=== PATIENT | male | born 1930 | race Caucasian/White ===

== ENCOUNTER 2018-11-30 11:47 | Inpatient (IN) | payer MEDICARE, OTHER ==
[2018-11-30 12:32] LABS: ADD MAN DIFF? NO
[2018-11-30 12:38] LABS: ABNORMAL IP MESSAGE 1; EOSINOPHILS # 0.1 10^3/ul (0.0-0.5); EOSINOPHILS % 3.6 % (0.0-7.0); HEMATOCRIT 35.3 % (42.0-52.0); HEMOGLOBIN 11.8 g/dl (14.0-18.0); LYMPHOCYTES # 0.5 10^3/ul (0.8-2.9); LYMPHOCYTES % 17.3 % (15.0-51.0); MEAN CORPUSCULAR HEMOGLOBIN 31.5 pg (29.0-33.0); MEAN CORPUSCULAR HGB CONC 33.4 g/dl (32.0-37.0); MEAN CORPUSCULAR VOLUME 94.1 fl (82.0-101.0); MEAN PLATELET VOLUME 9.9 fl (7.4-10.4); MONOCYTE # 0.2 10^3/ul (0.3-0.9); MONOCYTES % 6.8 % (0.0-11.0); NEUTROPHIL # 2.2 10^3/ul (1.6-7.5); PLATELET COUNT 80 10^3/UL (140-415); POSITIVE DIFF @See below; RED BLOOD COUNT 3.75 10^6/ul (4.70-6.10); RED CELL DISTRIBUTION WIDTH 14.5 % (11.5-14.5)
[2018-11-30 12:38] LABS: WHITE BLOOD COUNT 3.1 10^3/ul (4.8-10.8)
[2018-11-30 12:53] LABS: INR 1.02; PROTIME 13.5 Sec (11.9-14.9); PT RATIO 1.1
[2018-11-30 12:54] LABS: PARTIAL THROMBOPLASTIN TIME 31.7 Sec (23.0-35.0)
[2018-11-30 13:03] LABS: ANION GAP 9 (5-13); BLOOD UREA NITROGEN 30 mg/dl (7-20); CALCIUM 9.6 mg/dl (8.4-10.2); CARBON DIOXIDE 24 mmol/L (21-31); CHLORIDE 109 mmol/L (97-110); CHOL/HDL RATIO 2.1 RATIO; CHOLESTEROL 126 mg/dl (100-200); CREATININE 1.25 mg/dl (0.61-1.24); GLUCOSE 202 mg/dl (70-220); HDL CHOLESTEROL 59 mg/dl (31-75); LDL CHOLESTEROL,CALCULATED 45 mg/dl; POTASSIUM 4.6 mmol/L (3.5-5.1); SODIUM 142 mmol/L (135-144); TRIGLYCERIDES 111 mg/dl (0-149)
[2018-11-30 13:14] LABS: TROPONIN-I < 0.012 ng/ml (0.000-0.120)
[2018-11-30 13:17] LABS: HEMOGLOBIN A1C 7.7 % (0-5.9)
[2018-11-30] MEDS ORDERED: ONDANSETRON 4 MG INJ IV (13:30)
[2018-11-30 19:55] LABS: ADD UMIC NO; UR ASCORBIC ACID NEGATIVE (NEGATIVE); UR BILIRUBIN (Dip) NEGATIVE (NEGATIVE); UR BLOOD (Dip) NEGATIVE (NEGATIVE); UR CLARITY CLEAR (CLEAR); UR COLOR YELLOW (YELLOW); UR GLUCOSE (Dip) NEGATIVE (NEGATIVE); UR KETONES (Dip) NEGATIVE (NEGATIVE); UR LEUKOCYTE ESTERASE (Dip) NEGATIVE Leu/ul (NEGATIVE); UR NITRITE (Dip) NEGATIVE (NEGATIVE); UR SPECIFIC GRAVITY (Dip) 1.009 (1.003-1.030); UR TOTAL PROTEIN (Dip) NEGATIVE (NEGATIVE); UR UROBILINOGEN (Dip) NEGATIVE (NEGATIVE)
[2018-11-30] MEDS: ACETAMINOPHEN 325 MG TAB PO (20:08)
[2018-11-30 20:17] LABS: AMPHETAMINE/METHAMPHETAMINE Negative (NEGATIVE); BARBITURATES Negative (NEGATIVE); BENZODIAZEPINES Negative (NEGATIVE); CANNABINOIDS Negative (NEGATIVE); COCAINE Negative (NEGATIVE); OPIATES Negative (NEGATIVE)
[2018-11-30] MEDS ORDERED: hydrALAzine 20 MG INJ IV (21:30)
[2018-11-30] MEDS ORDERED: INSULIN DETEMIR [LEVEMIR] 3ML CART SC (21:30)
[2018-11-30] MEDS: SOD CHLORIDE 0.9% 500 ML IV (22:31)
[2018-11-30] MEDS ORDERED: ACETAMINOPHEN 325 MG TAB PO (23:30)
[2018-11-30] MEDS: SOD CHLORIDE 0.9% 1,000 ML IV (23:43)
[2018-12-01] MEDS: ACCU-CHEK XX (02:00)
[2018-12-01] MEDS: LORAZEPAM 0.5 MG TAB PO ×2 (02:05→21:33)
[2018-12-01] MEDS: LEVOTHYROXINE 175 MCG TAB PO (06:11)
[2018-12-01] MEDS: PANTOPRAZOLE (EC) 40 MG TAB PO ×2 (06:12→18:23)
[2018-12-01] MEDS: INSULIN ASPART [NOVOLOG] 3 ML PEN SC ×4 (07:55→21:32)
[2018-12-01] MEDS: ASPIRIN 81 MG TAB PO (08:10)
[2018-12-01] MEDS: GABAPENTIN 100 MG CAP PO (08:10)
[2018-12-01] MEDS: BENAZEPRIL 10 MG TAB PO (08:11)
[2018-12-01] MEDS: INSULIN GLARGINE [LANTus] (100 UNITS/ML) SYG SC (08:16)
[2018-12-01 08:27] LABS: WHITE BLOOD COUNT 2.2 10^3/ul (4.8-10.8)
[2018-12-01 08:27] LABS: ABNORMAL IP MESSAGE 1; HEMATOCRIT 32.1 % (42.0-52.0); HEMOGLOBIN 10.8 g/dl (14.0-18.0); MEAN CORPUSCULAR HEMOGLOBIN 31.9 pg (29.0-33.0); MEAN CORPUSCULAR HGB CONC 33.6 g/dl (32.0-37.0); MEAN CORPUSCULAR VOLUME 94.7 fl (82.0-101.0); MEAN PLATELET VOLUME 10.2 fl (7.4-10.4); PLATELET COUNT 73 10^3/UL (140-415); POSITIVE DIFF @See below; RED BLOOD COUNT 3.39 10^6/ul (4.70-6.10); RED CELL DISTRIBUTION WIDTH 14.3 % (11.5-14.5)
[2018-12-01 08:29] LABS: ADD MAN DIFF? YES
[2018-12-01 08:50] LABS: AMMONIA 31 umol/l (9-30)
[2018-12-01 08:51] LABS: CALCIUM 9.1 mg/dl (8.4-10.2)
[2018-12-01 08:51] LABS: CREATINE KINASE 37 IU/L (23-200); MAGNESIUM 1.9 mg/dl (1.7-2.5)
[2018-12-01 08:57] LABS: B-TYPE NATRIURETIC PEPTIDE 295 PG/ML (0-450); CK-MB 0.73 ng/ml (0.0-2.4); TROPONIN-I < 0.012 ng/ml (0.000-0.120)
[2018-12-01 10:50] LABS: BURR CELLS 1+ (0-0); EOSINOPHILS % (M) 2 % (0-7); GIANT THROMBO% (M) 1 % (0-0); LYMPHOCYTES #M 0.3 10^3/ul (0.8-2.9); LYMPHOCYTES % (M) 18 % (15-51); MONOCYTE #M 0.1 10^3/ul (0.3-0.9); MONOCYTES % (M) 9 % (0-11); MYELOCYTES % (M) 1 % (0-0); PLATELET ESTIMATE DECREASED; POIKILOCYTOSIS 1+ (0-0); SEGMENTED NEUTROPHILS (M) % 70 % (39-77); SMUDGE%M 3 % (0-0)
[2018-12-01] MEDS: SOD CHLORIDE 0.9% 1,000 ML IV (17:30)
[2018-12-01] MEDS: DOCUSATE SODIUM 100 MG CAP PO (21:34)
[2018-12-01] MEDS: GABAPENTIN 300 MG CAP PO (21:35)
[2018-12-01] MEDS: MAGNESIUM HYDROXIDE 30ML CUP PO (21:36)
[2018-12-02] MEDS: ACCU-CHEK XX (02:33)
[2018-12-02] MEDS: SOD CHLORIDE 0.9% 1,000 ML IV (03:23)
[2018-12-02] MEDS: PANTOPRAZOLE (EC) 40 MG TAB PO ×2 (06:13→17:56)
[2018-12-02] MEDS: LEVOTHYROXINE 175 MCG TAB PO (06:13)
[2018-12-02] MEDS: ASPIRIN 81 MG TAB PO (08:54)
[2018-12-02] MEDS: GABAPENTIN 100 MG CAP PO (08:54)
[2018-12-02] MEDS: BENAZEPRIL 10 MG TAB PO (08:54)
[2018-12-02] MEDS: LEVETIRACETAM 250 MG TAB PO ×2 (08:55→20:36)
[2018-12-02] MEDS: INSULIN ASPART [NOVOLOG] 3 ML PEN SC ×4 (10:20→20:36)
[2018-12-02] MEDS: INSULIN GLARGINE [LANTus] (100 UNITS/ML) SYG SC (10:20)
[2018-12-02] MEDS: NA PHOSPHATE/BIPHOS 133 ML ENEMA PR (10:25)
[2018-12-02 10:59] LABS: ADD MAN DIFF? NO
[2018-12-02 11:03] LABS: ABNORMAL IP MESSAGE 1; BASOPHILS % 0.3 % (0.0-2.0); EOSINOPHILS # 0.1 10^3/ul (0.0-0.5); HEMATOCRIT 33.2 % (42.0-52.0); HEMOGLOBIN 11.4 g/dl (14.0-18.0); LYMPHOCYTES # 0.4 10^3/ul (0.8-2.9); LYMPHOCYTES % 13.1 % (15.0-51.0); MEAN CORPUSCULAR HEMOGLOBIN 31.9 pg (29.0-33.0); MEAN CORPUSCULAR HGB CONC 34.3 g/dl (32.0-37.0); MEAN PLATELET VOLUME 9.8 fl (7.4-10.4); MONOCYTE # 0.3 10^3/ul (0.3-0.9); MONOCYTES % 8.4 % (0.0-11.0); NEUTROPHIL # 2.2 10^3/ul (1.6-7.5); NEUTROPHILS % 73.9 % (39.0-77.0); PLATELET COUNT 74 10^3/UL (140-415); POSITIVE DIFF @See below; RED BLOOD COUNT 3.57 10^6/ul (4.70-6.10); RED CELL DISTRIBUTION WIDTH 14.3 % (11.5-14.5)
[2018-12-02 11:29] LABS: ANION GAP 8 (5-13); BLOOD UREA NITROGEN 26 mg/dl (7-20); CARBON DIOXIDE 22 mmol/L (21-31); CHLORIDE 108 mmol/L (97-110); CREATININE 1.19 mg/dl (0.61-1.24); GLUCOSE 200 mg/dl (70-220); POTASSIUM 4.6 mmol/L (3.5-5.1); SODIUM 138 mmol/L (135-144)
[2018-12-02] MEDS: RIFAXIMIN 550 MG TAB PO (12:31)
[2018-12-02 12:55] LABS: ANISOCYTOSIS 1+ (0-0); BURR CELLS 1+ (0-0); EOSINOPHILS % (M) 7 % (0-7); LYMPHOCYTES #M 0.2 10^3/ul (0.8-2.9); LYMPHOCYTES % (M) 9 % (15-51); MONOCYTE #M 0.1 10^3/ul (0.3-0.9); MONOCYTES % (M) 4 % (0-11); OVALOCYTES 1+ (0-0); PLATELET ESTIMATE SIG DECREASED; POIKILOCYTOSIS 1+ (0-0); POLYCHROMASIA 3+ (0-0); REACTIVE LYMPHOCYTES% (M) 3 % (0-0); SEGMENTED NEUTROPHILS (M) % 77 % (39-77); SMUDGE%M 1 % (0-0)
[2018-12-02] MEDS: metFORMIN (XR) 500 MG TAB PO (17:56)
[2018-12-02] MEDS ORDERED: DIPHENHYDRAMINE 25 MG CAP PO (19:00)
[2018-12-02] MEDS ORDERED: RISPERIDONE 0.25 MG TAB PO (19:00)
[2018-12-02] MEDS: GABAPENTIN 300 MG CAP PO (20:12)
[2018-12-03] MEDS: ACCU-CHEK XX (02:00)
[2018-12-03] MEDS: LEVOTHYROXINE 175 MCG TAB PO (06:05)
[2018-12-03] MEDS: PANTOPRAZOLE (EC) 40 MG TAB PO ×2 (06:05→18:13)
[2018-12-03 06:24] LABS: ADD MAN DIFF? NO
[2018-12-03 06:36] LABS: ABNORMAL IP MESSAGE 1; BASOPHILS % 0.7 % (0.0-2.0); EOSINOPHILS # 0.1 10^3/ul (0.0-0.5); EOSINOPHILS % 4.5 % (0.0-7.0); HEMATOCRIT 35.1 % (42.0-52.0); LYMPHOCYTES # 0.5 10^3/ul (0.8-2.9); LYMPHOCYTES % 17.5 % (15.0-51.0); MEAN CORPUSCULAR HGB CONC 34.2 g/dl (32.0-37.0); MEAN CORPUSCULAR VOLUME 93.6 fl (82.0-101.0); MEAN PLATELET VOLUME 10.3 fl (7.4-10.4); MONOCYTE # 0.3 10^3/ul (0.3-0.9); MONOCYTES % 9.1 % (0.0-11.0); NEUTROPHILS % 68.2 % (39.0-77.0); PLATELET COUNT 82 10^3/UL (140-415); POSITIVE DIFF @See below; RED BLOOD COUNT 3.75 10^6/ul (4.70-6.10); RED CELL DISTRIBUTION WIDTH 14.5 % (11.5-14.5)
[2018-12-03 06:36] LABS: WHITE BLOOD COUNT 2.9 10^3/ul (4.8-10.8)
[2018-12-03 06:58] LABS: AMMONIA 110 umol/l (9-30)
[2018-12-03 07:08] LABS: ANION GAP 6 (5-13); BLOOD UREA NITROGEN 23 mg/dl (7-20); CALCIUM 9.4 mg/dl (8.4-10.2); CARBON DIOXIDE 23 mmol/L (21-31); CHLORIDE 112 mmol/L (97-110); GLUCOSE 168 mg/dl (70-220); MAGNESIUM 2.2 mg/dl (1.7-2.5); PHOSPHORUS 3.4 mg/dl (2.5-4.9); POTASSIUM 4.5 mmol/L (3.5-5.1); SODIUM 141 mmol/L (135-144)
[2018-12-03] MEDS: metFORMIN (XR) 500 MG TAB PO ×2 (07:55→17:19)
[2018-12-03] MEDS: SOD CHLORIDE 0.9% 1,000 ML IV (08:03)
[2018-12-03] MEDS: DOCUSATE SODIUM 100 MG CAP PO (08:04)
[2018-12-03] MEDS: GABAPENTIN 100 MG CAP PO (08:04)
[2018-12-03] MEDS: RIFAXIMIN 550 MG TAB PO (08:04)
[2018-12-03] MEDS: ASPIRIN 81 MG TAB PO (08:05)
[2018-12-03] MEDS: LEVETIRACETAM 250 MG TAB PO ×2 (08:10→21:00)
[2018-12-03] MEDS: BENAZEPRIL 10 MG TAB PO (08:10)
[2018-12-03] MEDS: INSULIN ASPART [NOVOLOG] 3 ML PEN SC ×4 (08:22→21:15)
[2018-12-03] MEDS: INSULIN GLARGINE [LANTus] (100 UNITS/ML) SYG SC (08:22)
[2018-12-03] MEDS: CYANOCOBALAMIN 1000 MCG INJ IM (10:30)
[2018-12-03] MEDS ORDERED: DEXTROSE 50% 50 ML SYRINGE IV ×2 (11:30)
[2018-12-03] MEDS ORDERED: GLUCOSE GEL 15 GRAM TUBE BUCCAL (11:30)
[2018-12-03] MEDS ORDERED: GLUCAGON 1 MG INJ IM (11:30)
[2018-12-03] MEDS ORDERED: GLUCOSE GEL 15 GRAM TUBE PO ×2 (11:30)
[2018-12-03] MEDS: ARTIFICIAL TEARS 15 ML OPH BOTH EYES ×3 (15:00→21:06)
[2018-12-03] MEDS: LACTULOSE 30ML CUP PO (15:46)
[2018-12-03] MEDS: GABAPENTIN 300 MG CAP PO (21:06)
[2018-12-04] MEDS: ACCU-CHEK XX (02:08)
[2018-12-04] MEDS: PANTOPRAZOLE (EC) 40 MG TAB PO ×2 (06:03→17:12)
[2018-12-04] MEDS: LEVOTHYROXINE 175 MCG TAB PO (06:03)
[2018-12-04] MEDS: SERTRALINE 50 MG TAB PO (08:07)
[2018-12-04] MEDS: ARTIFICIAL TEARS 15 ML OPH BOTH EYES ×4 (08:07→22:28)
[2018-12-04] MEDS: LEVETIRACETAM 250 MG TAB PO (08:07)
[2018-12-04] MEDS: MEGESTROL (40 MG/ML) 10ML CUP PO (08:07)
[2018-12-04] MEDS: BENAZEPRIL 10 MG TAB PO (08:07)
[2018-12-04] MEDS: ASPIRIN 81 MG TAB PO (08:08)
[2018-12-04] MEDS: RIFAXIMIN 550 MG TAB PO (08:08)
[2018-12-04] MEDS: GABAPENTIN 100 MG CAP PO (08:08)
[2018-12-04] MEDS: INSULIN GLARGINE [LANTus] (100 UNITS/ML) SYG SC (08:32)
[2018-12-04] MEDS: INSULIN ASPART [NOVOLOG] 3 ML PEN SC ×4 (08:32→21:00)
[2018-12-04 08:34] LABS: ADD MAN DIFF? NO
[2018-12-04 08:40] LABS: ABNORMAL IP MESSAGE 1; BASOPHILS % 0.7 % (0.0-2.0); EOSINOPHILS # 0.2 10^3/ul (0.0-0.5); HEMATOCRIT 36.6 % (42.0-52.0); HEMOGLOBIN 12.5 g/dl (14.0-18.0); LYMPHOCYTES # 0.5 10^3/ul (0.8-2.9); LYMPHOCYTES % 13.5 % (15.0-51.0); MEAN CORPUSCULAR HEMOGLOBIN 31.6 pg (29.0-33.0); MEAN CORPUSCULAR HGB CONC 34.2 g/dl (32.0-37.0); MEAN CORPUSCULAR VOLUME 92.7 fl (82.0-101.0); MEAN PLATELET VOLUME 10.8 fl (7.4-10.4); MONOCYTE # 0.4 10^3/ul (0.3-0.9); MONOCYTES % 9.5 % (0.0-11.0); NEUTROPHIL # 2.9 10^3/ul (1.6-7.5); NEUTROPHILS % 72.1 % (39.0-77.0); PLATELET COUNT 88 10^3/UL (140-415); POSITIVE DIFF @See below; RED BLOOD COUNT 3.95 10^6/ul (4.70-6.10); RED CELL DISTRIBUTION WIDTH 14.7 % (11.5-14.5)
[2018-12-04] MEDS ORDERED: MEGESTROL 40 MG TAB PO (09:00)
[2018-12-04 09:02] LABS: AMMONIA 103 umol/l (9-30)
[2018-12-04 09:04] LABS: MAGNESIUM 2.2 mg/dl (1.7-2.5)
[2018-12-04 09:05] LABS: ANION GAP 9 (5-13); BLOOD UREA NITROGEN 28 mg/dl (7-20); CALCIUM 9.3 mg/dl (8.4-10.2); CARBON DIOXIDE 22 mmol/L (21-31); CHLORIDE 113 mmol/L (97-110); CREATININE 1.33 mg/dl (0.61-1.24); GLUCOSE 151 mg/dl (70-220); POTASSIUM 4.3 mmol/L (3.5-5.1); SODIUM 144 mmol/L (135-144)
[2018-12-04 09:09] LABS: B-TYPE NATRIURETIC PEPTIDE 736 PG/ML (0-450)
[2018-12-04] MEDS ORDERED: METOPROLOL 5 MG INJ IV (14:00)
[2018-12-04] MEDS: METOPROLOL 25 MG TAB PO ×2 (14:53→22:29)
[2018-12-04] MEDS: POTASSIUM CHLORIDE 10 MEQ in SOD CHLORIDE 0.45% 1,000 ML IV (14:54)
[2018-12-04 15:09] LABS: ADD UMIC NO; UR AMORPHOUS CRYSTAL FEW /HPF (NONE SEEN); UR ASCORBIC ACID NEGATIVE (NEGATIVE); UR BACTERIA FEW /HPF (NONE SEEN); UR BILIRUBIN (Dip) NEGATIVE (NEGATIVE); UR BLOOD (Dip) NEGATIVE (NEGATIVE); UR CLARITY SLIGHTLY CLOUDY (CLEAR); UR COLOR YELLOW (YELLOW); UR GLUCOSE (Dip) NEGATIVE (NEGATIVE); UR KETONES (Dip) NEGATIVE (NEGATIVE); UR LEUKOCYTE ESTERASE (Dip) NEGATIVE Leu/ul (NEGATIVE); UR NITRITE (Dip) NEGATIVE (NEGATIVE); UR RBC 0 /HPF (0-5); UR SPECIFIC GRAVITY (Dip) 1.017 (1.003-1.030); UR TOTAL PROTEIN (Dip) NEGATIVE (NEGATIVE); UR UROBILINOGEN (Dip) NEGATIVE (NEGATIVE); UR WBC 0 /HPF (0-5)
[2018-12-04] MEDS: TESTOSTERONE CYPIONATE 200 MG/ML INJ IM (15:43)
[2018-12-04 17:12] LABS: AMMONIA 127 umol/l (9-30)
[2018-12-04] MEDS: metFORMIN (XR) 500 MG TAB PO (17:12)
[2018-12-04 18:44] LABS: TROPONIN-I < 0.012 ng/ml (0.000-0.120)
[2018-12-04] MEDS: GABAPENTIN 300 MG CAP PO (22:28)
[2018-12-05 01:28] LABS: TROPONIN-I 0.015 ng/ml (0.000-0.120)
[2018-12-05] MEDS: ACCU-CHEK XX (02:00)
[2018-12-05] MEDS: PANTOPRAZOLE (EC) 40 MG TAB PO ×2 (05:43→17:24)
[2018-12-05] MEDS: LEVOTHYROXINE 175 MCG TAB PO (05:43)
[2018-12-05 07:01] LABS: ANION GAP 9 (5-13); BLOOD UREA NITROGEN 34 mg/dl (7-20); CALCIUM 9.3 mg/dl (8.4-10.2); CARBON DIOXIDE 22 mmol/L (21-31); CHLORIDE 112 mmol/L (97-110); CREATININE 1.28 mg/dl (0.61-1.24); GLUCOSE 123 mg/dl (70-220); POTASSIUM 4.3 mmol/L (3.5-5.1); SODIUM 143 mmol/L (135-144)
[2018-12-05 07:02] LABS: B-TYPE NATRIURETIC PEPTIDE 562 PG/ML (0-450)
[2018-12-05] MEDS: POTASSIUM CHLORIDE 10 MEQ in SOD CHLORIDE 0.45% 1,000 ML IV (07:52)
[2018-12-05] MEDS: INSULIN ASPART [NOVOLOG] 3 ML PEN SC ×4 (07:55→20:38)
[2018-12-05] MEDS: METOPROLOL 25 MG TAB PO ×2 (09:00→20:27)
[2018-12-05] MEDS: ARTIFICIAL TEARS 15 ML OPH BOTH EYES ×4 (09:11→20:26)
[2018-12-05] MEDS: MEGESTROL (40 MG/ML) 10ML CUP PO (09:11)
[2018-12-05] MEDS: BENAZEPRIL 10 MG TAB PO (09:12)
[2018-12-05] MEDS: RIFAXIMIN 550 MG TAB PO (09:12)
[2018-12-05] MEDS: GABAPENTIN 100 MG CAP PO (09:13)
[2018-12-05] MEDS: ASPIRIN 81 MG TAB PO (09:13)
[2018-12-05] MEDS: ENOXAPARIN 30 MG/0.3 ML SYG SC (09:29)
[2018-12-05] MEDS: INSULIN GLARGINE [LANTus] (100 UNITS/ML) SYG SC (09:30)
[2018-12-05] MEDS: metFORMIN (XR) 500 MG TAB PO (17:12)
[2018-12-05] MEDS: GABAPENTIN 300 MG CAP PO (20:27)
[2018-12-06] MEDS: ACCU-CHEK XX (01:33)
[2018-12-06] MEDS: POTASSIUM CHLORIDE 10 MEQ in SOD CHLORIDE 0.45% 1,000 ML IV ×2 (01:33→16:15)
[2018-12-06] MEDS: LEVOTHYROXINE 175 MCG TAB PO (05:45)
[2018-12-06] MEDS: PANTOPRAZOLE (EC) 40 MG TAB PO ×2 (05:45→17:11)
[2018-12-06] MEDS: INSULIN ASPART [NOVOLOG] 3 ML PEN SC ×4 (07:55→21:44)
[2018-12-06] MEDS: GABAPENTIN 100 MG CAP PO (08:25)
[2018-12-06] MEDS: BENAZEPRIL 10 MG TAB PO (08:25)
[2018-12-06] MEDS: RIFAXIMIN 550 MG TAB PO (08:25)
[2018-12-06] MEDS: ASPIRIN 81 MG TAB PO (08:25)
[2018-12-06] MEDS: METOPROLOL 25 MG TAB PO ×3 (08:25→21:14)
[2018-12-06] MEDS: ARTIFICIAL TEARS 15 ML OPH BOTH EYES ×4 (08:25→21:13)
[2018-12-06] MEDS: MEGESTROL (40 MG/ML) 10ML CUP PO (08:25)
[2018-12-06] MEDS: INSULIN GLARGINE [LANTus] (100 UNITS/ML) SYG SC (08:38)
[2018-12-06] MEDS: ENOXAPARIN 30 MG/0.3 ML SYG SC (08:39)
[2018-12-06 15:46] LABS: FREE T4 (FREE THYROXINE) 2.08 ng/dl (0.85-1.93)
[2018-12-06] MEDS: metFORMIN (XR) 500 MG TAB PO (17:11)
[2018-12-06] MEDS: GABAPENTIN 300 MG CAP PO (21:13)
[2018-12-07] MEDS: POTASSIUM CHLORIDE 10 MEQ in SOD CHLORIDE 0.45% 1,000 ML IV (00:18)
[2018-12-07] MEDS: ACCU-CHEK XX (02:00)
[2018-12-07] MEDS: LEVOTHYROXINE 150 MCG TAB PO (06:10)
[2018-12-07] MEDS: PANTOPRAZOLE (EC) 40 MG TAB PO (06:10)
[2018-12-07 06:41] LABS: AMMONIA 78 umol/l (9-30)
[2018-12-07 06:47] LABS: ANION GAP 8 (5-13); BLOOD UREA NITROGEN 25 mg/dl (7-20); CALCIUM 9.7 mg/dl (8.4-10.2); CARBON DIOXIDE 22 mmol/L (21-31); CHLORIDE 110 mmol/L (97-110); CREATININE 1.31 mg/dl (0.61-1.24); GLUCOSE 108 mg/dl (70-220); POTASSIUM 4.5 mmol/L (3.5-5.1); SODIUM 140 mmol/L (135-144)
[2018-12-07 06:51] LABS: B-TYPE NATRIURETIC PEPTIDE 362 PG/ML (0-450)
[2018-12-07] MEDS: INSULIN ASPART [NOVOLOG] 3 ML PEN SC ×2 (07:55→11:28)
[2018-12-07] MEDS: INSULIN GLARGINE [LANTus] (100 UNITS/ML) SYG SC (08:05)
[2018-12-07] MEDS: MEGESTROL (40 MG/ML) 10ML CUP PO (09:19)
[2018-12-07] MEDS: GABAPENTIN 100 MG CAP PO (09:19)
[2018-12-07] MEDS: ARTIFICIAL TEARS 15 ML OPH BOTH EYES ×2 (09:19→13:47)
[2018-12-07] MEDS: ASPIRIN 81 MG TAB PO (09:20)
[2018-12-07] MEDS: BENAZEPRIL 10 MG TAB PO (09:20)
[2018-12-07] MEDS: RIFAXIMIN 550 MG TAB PO (09:20)
[2018-12-07] MEDS: METOPROLOL 25 MG TAB PO (09:21)
[2018-12-07] MEDS: ENOXAPARIN 30 MG/0.3 ML SYG SC (09:26)
[2018-12-07] MEDS: CREON (24K-76K-120K) 1 CAP PO (11:22)
== END 2018-12-07 17:23 | disposition short-term general hospital (02) | DRG 69 ==
LOC: E/R 11:47 → TEL 13:04
DX: G45.9 Transient cerebral ischemic attack, unspecified (principal); Z68.1 Body mass index [BMI] 19.9 or less, adult; D61.818 Other pancytopenia; G93.40 Encephalopathy, unspecified; I47.2 Ventricular tachycardia; E89.1 Postprocedural hypoinsulinemia; D18.1 Lymphangioma, any site; F32.9 Major depressive disorder, single episode, unspecified; F41.9 Anxiety disorder, unspecified; J44.9 Chronic obstructive pulmonary disease, unspecified; E86.0 Dehydration; I67.82 Cerebral ischemia; I12.9 Hypertensive chronic kidney disease with stage 1 through stage 4 chronic kidney disease, or unspecified chronic kidney disease; N18.2 Chronic kidney disease, stage 2 (mild); E78.00 Pure hypercholesterolemia, unspecified; D64.9 Anemia, unspecified; R00.1 Bradycardia, unspecified; I48.91 Unspecified atrial fibrillation; R63.4 Abnormal weight loss; E03.9 Hypothyroidism, unspecified; K21.9 Gastro-esophageal reflux disease without esophagitis; E13.42 Other specified diabetes mellitus with diabetic polyneuropathy; E13.22 Other specified diabetes mellitus with diabetic chronic kidney disease; Z88.2 Allergy status to sulfonamides; Z85.048 Personal history of other malignant neoplasm of rectum, rectosigmoid junction, and anus; Z85.51 Personal history of malignant neoplasm of bladder; Z90.411 Acquired partial absence of pancreas; Z79.4 Long term (current) use of insulin; Z79.82 Long term (current) use of aspirin; Z87.891 Personal history of nicotine dependence
CPT/HCPCS: 36415; 70450; 70551; 71045; 80048; 80061; 80307; 81001; 81003; 82140; 82310; 82550; 82553; 82607; 82962; 83036; 83735; 83880; 84100; 84439; 84443; 84484; 85025; 85610; 85730; 86765; 92523; 92526; 92610; 93005; 93306; 93880; 95819; 97110; 97116; 97162; 97165; 97168; 97530; 99285-25

== ENCOUNTER 2018-12-07 17:38 | Inpatient (IN) | payer MEDICARE, OTHER ==
[2018-12-07] MEDS ORDERED: BISACODYL 10 MG SUPP PR (19:00)
[2018-12-07] MEDS ORDERED: LACTULOSE 30ML CUP PO (19:00)
[2018-12-07] MEDS ORDERED: DEXTROSE 50% 50 ML SYRINGE IV ×2 (20:14)
[2018-12-07] MEDS ORDERED: GLUCOSE GEL 15 GRAM TUBE PO ×2 (20:14)
[2018-12-07] MEDS ORDERED: GLUCOSE GEL 15 GRAM TUBE BUCCAL (20:14)
[2018-12-07] MEDS ORDERED: METOPROLOL 5 MG INJ IV (20:14)
[2018-12-07] MEDS ORDERED: MAGNESIUM HYDROXIDE 30ML CUP PO (20:14)
[2018-12-07] MEDS ORDERED: DOCUSATE SODIUM 100 MG CAP PO (20:14)
[2018-12-07] MEDS ORDERED: ASPIRIN 81 MG TAB PO (20:14)
[2018-12-07] MEDS ORDERED: GLUCAGON 1 MG INJ IM (20:14)
[2018-12-07] MEDS ORDERED: ACETAMINOPHEN 325 MG TAB PO (20:14)
[2018-12-07] MEDS ORDERED: hydrALAzine 20 MG INJ IV (20:14)
[2018-12-07] MEDS ORDERED: CREON (24K-76K-120K) 1 CAP PO (20:14)
[2018-12-07] MEDS ORDERED: RISPERIDONE 0.25 MG TAB PO (20:14)
[2018-12-07] MEDS: GABAPENTIN 300 MG CAP PO (22:14)
[2018-12-07] MEDS: SENNA TAB PO (22:15)
[2018-12-07] MEDS: ARTIFICIAL TEARS 15 ML OPH BOTH EYES (22:15)
[2018-12-07] MEDS: METOPROLOL 25 MG TAB PO (22:15)
[2018-12-07] MEDS: DIPHENHYDRAMINE 25 MG CAP PO (22:15)
[2018-12-07] MEDS: DOCUSATE SODIUM 100 MG CAP PO (22:15)
[2018-12-07] MEDS: INSULIN ASPART [NOVOLOG] 3 ML PEN SC (22:31)
[2018-12-08] MEDS: ACCU-CHEK XX (02:40)
[2018-12-08] MEDS: LEVOTHYROXINE 150 MCG TAB PO (07:00)
[2018-12-08] MEDS: PANTOPRAZOLE (EC) 40 MG TAB PO ×2 (07:00→17:53)
[2018-12-08 07:30] LABS: ADD MAN DIFF? NO
[2018-12-08 07:31] LABS: ABNORMAL IP MESSAGE 1; BASOPHILS % 0.5 % (0.0-2.0); EOSINOPHILS # 0.1 10^3/ul (0.0-0.5); EOSINOPHILS % 2.9 % (0.0-7.0); HEMATOCRIT 35.2 % (42.0-52.0); HEMOGLOBIN 12.3 g/dl (14.0-18.0); LYMPHOCYTES # 0.7 10^3/ul (0.8-2.9); LYMPHOCYTES % 16.4 % (15.0-51.0); MEAN CORPUSCULAR HEMOGLOBIN 31.8 pg (29.0-33.0); MEAN CORPUSCULAR HGB CONC 34.9 g/dl (32.0-37.0); MEAN PLATELET VOLUME 10.3 fl (7.4-10.4); MONOCYTE # 0.4 10^3/ul (0.3-0.9); MONOCYTES % 9.5 % (0.0-11.0); NEUTROPHILS % 70.5 % (39.0-77.0); PLATELET COUNT 78 10^3/UL (140-415); POSITIVE DIFF @See below; RED BLOOD COUNT 3.87 10^6/ul (4.70-6.10); RED CELL DISTRIBUTION WIDTH 14.7 % (11.5-14.5)
[2018-12-08 07:31] LABS: WHITE BLOOD COUNT 4.2 10^3/ul (4.8-10.8)
[2018-12-08] MEDS: INSULIN ASPART [NOVOLOG] 3 ML PEN SC ×4 (07:35→21:00)
[2018-12-08 07:56] LABS: ALANINE AMINOTRANSFERASE 51 IU/L (13-69); ALBUMIN 3.7 g/dl (3.3-4.9); ALBUMIN/GLOBULIN RATIO 1.23; ALKALINE PHOSPHATASE 168 IU/L (42-121); ANION GAP 9 (5-13); ASPARTATE AMINO TRANSFERASE 52 IU/L (15-46); BILIRUBIN,INDIRECT 1.6 mg/dl (0-1.1); BILIRUBIN,TOTAL 1.6 mg/dl (0.2-1.3); BLOOD UREA NITROGEN 25 mg/dl (7-20); CALCIUM 10.1 mg/dl (8.4-10.2); CARBON DIOXIDE 21 mmol/L (21-31); CHLORIDE 110 mmol/L (97-110); CREATININE 1.29 mg/dl (0.61-1.24); GLUCOSE 140 mg/dl (70-220); POTASSIUM 4.5 mmol/L (3.5-5.1); SODIUM 140 mmol/L (135-144); TOTAL PROTEIN 6.7 g/dl (6.1-8.1)
[2018-12-08] MEDS: RIFAXIMIN 550 MG TAB PO (09:00)
[2018-12-08] MEDS: GABAPENTIN 100 MG CAP PO (09:00)
[2018-12-08] MEDS: BENAZEPRIL 10 MG TAB PO (09:00)
[2018-12-08] MEDS: ENOXAPARIN 30 MG/0.3 ML SYG SC (09:00)
[2018-12-08] MEDS: INSULIN GLARGINE [LANTus] (100 UNITS/ML) SYG SC (09:00)
[2018-12-08] MEDS: MEGESTROL (40 MG/ML) 10ML CUP PO (09:00)
[2018-12-08] MEDS: METOPROLOL 25 MG TAB PO ×2 (09:00→21:29)
[2018-12-08] MEDS ORDERED: PETROLATUM 5 GM OINT TOP (10:30)
[2018-12-08] MEDS: ARTIFICIAL TEARS 15 ML OPH BOTH EYES ×4 (10:33→21:39)
[2018-12-08] MEDS: CREON (24K-76K-120K) 1 CAP PO ×2 (12:00→17:35)
[2018-12-08] MEDS ORDERED: PENDING SANTYL ORDER FOR WOUND CARE XX (12:00)
[2018-12-08] MEDS: POTASSIUM CHLORIDE IV (15:12)
[2018-12-08] MEDS: SOD CHLORIDE 0.45% IV (15:12)
[2018-12-08] MEDS: metFORMIN (XR) 500 MG TAB PO (17:05)
[2018-12-08 20:19] LABS: ADD UMIC YES; UR ASCORBIC ACID NEGATIVE (NEGATIVE); UR BACTERIA FEW /HPF (NONE SEEN); UR BILIRUBIN (Dip) NEGATIVE (NEGATIVE); UR BLOOD (Dip) 2+ mg/dL (NEGATIVE); UR CLARITY SLIGHTLY CLOUDY (CLEAR); UR COLOR YELLOW (YELLOW); UR GLUCOSE (Dip) NEGATIVE (NEGATIVE); UR KETONES (Dip) TRACE mg/dL (NEGATIVE); UR LEUKOCYTE ESTERASE (Dip) 1+ Leu/ul (NEGATIVE); UR NITRITE (Dip) NEGATIVE (NEGATIVE); UR RBC 22 /HPF (0-5); UR SPECIFIC GRAVITY (Dip) 1.016 (1.003-1.030); UR TOTAL PROTEIN (Dip) NEGATIVE (NEGATIVE); UR UROBILINOGEN (Dip) 2+ mg/dL (NEGATIVE); UR WBC 31 /HPF (0-5)
[2018-12-08] MEDS: SENNA TAB PO (21:00)
[2018-12-09] MEDS: ACCU-CHEK XX (02:00)
[2018-12-09] MEDS: PANTOPRAZOLE (EC) 40 MG TAB PO (06:53)
[2018-12-09] MEDS: LEVOTHYROXINE 150 MCG TAB PO (06:53)
[2018-12-09] MEDS: INSULIN ASPART [NOVOLOG] 3 ML PEN SC (08:16)
[2018-12-09] MEDS ORDERED: GABAPENTIN 300 MG CAP PO (17:00)
== END 2018-12-09 09:25 | disposition short-term general hospital (02) | DRG 70 ==
LOC: VRC 17:38
PROVIDERS: Physical Medicine & Rehabilitation
PROC: F07Z9FZ Gait Training/Functional Ambulation Treatment using Assistive, Adaptive, Supportive or Protective Equipment (ICD-10-PCS; principal; 2018-12-07)
PROC: F07Z8FZ Transfer Training Treatment using Assistive, Adaptive, Supportive or Protective Equipment (ICD-10-PCS; 2018-12-07)
PROC: F07Z5FZ Bed Mobility Treatment using Assistive, Adaptive, Supportive or Protective Equipment (ICD-10-PCS; 2018-12-07)
PROC: F08Z2FZ Grooming/Personal Hygiene Treatment using Assistive, Adaptive, Supportive or Protective Equipment (ICD-10-PCS; 2018-12-07)
PROC: F08Z0FZ Bathing/Showering Techniques Treatment using Assistive, Adaptive, Supportive or Protective Equipment (ICD-10-PCS; 2018-12-07)
PROC: F08Z1FZ Dressing Techniques Treatment using Assistive, Adaptive, Supportive or Protective Equipment (ICD-10-PCS; 2018-12-07)
DX: G46.4 Cerebellar stroke syndrome (principal); G93.41 Metabolic encephalopathy; E89.1 Postprocedural hypoinsulinemia; D61.818 Other pancytopenia; R53.83 Other fatigue; I12.9 Hypertensive chronic kidney disease with stage 1 through stage 4 chronic kidney disease, or unspecified chronic kidney disease; N18.9 Chronic kidney disease, unspecified; E03.9 Hypothyroidism, unspecified; K21.9 Gastro-esophageal reflux disease without esophagitis; D64.9 Anemia, unspecified; J44.9 Chronic obstructive pulmonary disease, unspecified; F32.9 Major depressive disorder, single episode, unspecified; F41.9 Anxiety disorder, unspecified; I48.91 Unspecified atrial fibrillation; R26.9 Unspecified abnormalities of gait and mobility; R00.1 Bradycardia, unspecified; E13.40 Other specified diabetes mellitus with diabetic neuropathy, unspecified; Z90.411 Acquired partial absence of pancreas; Z88.2 Allergy status to sulfonamides
CPT/HCPCS: 70450; 80053; 81001; 82962; 85025; 87081; 87086; 92610; 97163; 97167

== ENCOUNTER 2018-12-09 10:30 | Inpatient (IN) | payer MEDICARE, OTHER ==
[2018-12-09] MEDS: BENAZEPRIL 10 MG TAB PO (12:30)
[2018-12-09] MEDS: RIFAXIMIN 550 MG TAB PO (12:30)
[2018-12-09] MEDS ORDERED: RISPERIDONE 0.25 MG TAB PO ×2 (12:30→21:00)
[2018-12-09] MEDS: ASPIRIN 81 MG TAB PO (12:30)
[2018-12-09] MEDS ORDERED: GLUCAGON 1 MG INJ IM (13:00)
[2018-12-09] MEDS ORDERED: DEXTROSE 50% 50 ML SYRINGE IV ×2 (13:00)
[2018-12-09] MEDS ORDERED: GLUCOSE GEL 15 GRAM TUBE BUCCAL (13:00)
[2018-12-09] MEDS ORDERED: GLUCOSE GEL 15 GRAM TUBE PO ×2 (13:00)
[2018-12-09] MEDS: POTASSIUM CHLORIDE 10 MEQ in SOD CHLORIDE 0.45% 1,000 ML IV (15:02)
[2018-12-09] MEDS: INSULIN ASPART [NOVOLOG] 3 ML PEN SC ×3 (15:02→21:08)
[2018-12-09] MEDS: CREON (24K-76K-120K) 1 CAP PO (17:25)
[2018-12-09] MEDS: metFORMIN 500 MG TAB PO (17:25)
[2018-12-09] MEDS: PANTOPRAZOLE (EC) 40 MG TAB PO (17:25)
[2018-12-09 17:43] LABS: ADD UMIC NO; UR ASCORBIC ACID NEGATIVE (NEGATIVE); UR BACTERIA FEW /HPF (NONE SEEN); UR BILIRUBIN (Dip) NEGATIVE (NEGATIVE); UR BLOOD (Dip) NEGATIVE (NEGATIVE); UR CLARITY SLIGHTLY CLOUDY (CLEAR); UR COLOR AMBER (YELLOW); UR GLUCOSE (Dip) NEGATIVE (NEGATIVE); UR KETONES (Dip) 1+ mg/dL (NEGATIVE); UR LEUKOCYTE ESTERASE (Dip) NEGATIVE Leu/ul (NEGATIVE); UR MUCUS FEW /HPF (NONE SEEN); UR NITRITE (Dip) NEGATIVE (NEGATIVE); UR RBC 1 /HPF (0-5); UR SPECIFIC GRAVITY (Dip) 1.016 (1.003-1.030); UR TOTAL PROTEIN (Dip) NEGATIVE (NEGATIVE); UR UROBILINOGEN (Dip) 2+ mg/dL (NEGATIVE); UR WBC 2 /HPF (0-5)
[2018-12-09 18:40] LABS: B-TYPE NATRIURETIC PEPTIDE 679 PG/ML (0-450)
[2018-12-09 19:01] LABS: THYROID STIMULATING HORMONE 0.495 MIU/L (0.465-4.680)
[2018-12-09] MEDS: METOPROLOL 25 MG TAB PO (21:00)
[2018-12-10] MEDS: POTASSIUM CHLORIDE 10 MEQ in SOD CHLORIDE 0.45% 1,000 ML IV ×2 (01:51→12:34)
[2018-12-10 01:53] LABS: TROPONIN-I 0.035 ng/ml (0.000-0.120)
[2018-12-10] MEDS: INSULIN ASPART [NOVOLOG] 3 ML PEN SC ×6 (02:09→22:26)
[2018-12-10] MEDS: ACCU-CHEK XX (02:28)
[2018-12-10] MEDS: LEVOTHYROXINE 137 MCG TAB PO (05:57)
[2018-12-10] MEDS: PANTOPRAZOLE (EC) 40 MG TAB PO ×2 (05:57→18:00)
[2018-12-10 06:22] LABS: ADD MAN DIFF? NO
[2018-12-10 06:29] LABS: ABNORMAL IP MESSAGE 1; BASOPHILS % 0.6 % (0.0-2.0); EOSINOPHILS # 0.2 10^3/ul (0.0-0.5); EOSINOPHILS % 3.1 % (0.0-7.0); HEMATOCRIT 35.4 % (42.0-52.0); HEMOGLOBIN 12.4 g/dl (14.0-18.0); LYMPHOCYTES # 0.8 10^3/ul (0.8-2.9); LYMPHOCYTES % 15.6 % (15.0-51.0); MEAN CORPUSCULAR HEMOGLOBIN 32.5 pg (29.0-33.0); MEAN CORPUSCULAR VOLUME 92.7 fl (82.0-101.0); MEAN PLATELET VOLUME 10.5 fl (7.4-10.4); MONOCYTE # 0.5 10^3/ul (0.3-0.9); MONOCYTES % 9.4 % (0.0-11.0); NEUTROPHIL # 3.4 10^3/ul (1.6-7.5); NEUTROPHILS % 71.1 % (39.0-77.0); PLATELET COUNT 96 10^3/UL (140-415); POSITIVE DIFF @See below; RED BLOOD COUNT 3.82 10^6/ul (4.70-6.10); RED CELL DISTRIBUTION WIDTH 15.7 % (11.5-14.5)
[2018-12-10 06:29] LABS: WHITE BLOOD COUNT 4.8 10^3/ul (4.8-10.8)
[2018-12-10 06:45] LABS: INR 1.18; PROTIME 15.1 Sec (11.9-14.9); PT RATIO 1.2
[2018-12-10 07:00] LABS: B-TYPE NATRIURETIC PEPTIDE 761 PG/ML (0-450)
[2018-12-10 07:01] LABS: TROPONIN-I 0.029 ng/ml (0.000-0.120)
[2018-12-10 07:06] LABS: AMMONIA 50 umol/l (9-30)
[2018-12-10 07:09] LABS: ANION GAP 11 (5-13); BLOOD UREA NITROGEN 38 mg/dl (7-20); CALCIUM 9.4 mg/dl (8.4-10.2); CARBON DIOXIDE 19 mmol/L (21-31); CHLORIDE 109 mmol/L (97-110); CREATININE 1.58 mg/dl (0.61-1.24); GLUCOSE 165 mg/dl (70-220); MAGNESIUM 1.8 mg/dl (1.7-2.5); POTASSIUM 4.7 mmol/L (3.5-5.1); SODIUM 139 mmol/L (135-144)
[2018-12-10] MEDS: CREON (24K-76K-120K) 1 CAP PO ×3 (07:55→17:55)
[2018-12-10] MEDS: SENNA TAB PO (09:00)
[2018-12-10] MEDS: MAGNESIUM HYDROXIDE 30ML CUP PO (09:00)
[2018-12-10] MEDS ORDERED: RIFAXIMIN 550 MG TAB PO (09:00)
[2018-12-10] MEDS: METOPROLOL 25 MG TAB PO ×2 (09:00→21:03)
[2018-12-10] MEDS: ASPIRIN 81 MG TAB PO (09:00)
[2018-12-10] MEDS: BENAZEPRIL 10 MG TAB PO (09:00)
[2018-12-10] MEDS: RIFAXIMIN 550 MG TAB PO (09:00)
[2018-12-10 10:37] LABS: FREE T4 (FREE THYROXINE) 2.04 ng/dl (0.85-1.93)
[2018-12-10 15:12] LABS: TROPONIN-I 0.025 ng/ml (0.000-0.120)
[2018-12-10] MEDS: metFORMIN 500 MG TAB PO (17:55)
[2018-12-10 19:14] LABS: TROPONIN-I 0.021 ng/ml (0.000-0.120)
[2018-12-11] MEDS: INSULIN ASPART [NOVOLOG] 3 ML PEN SC ×6 (00:52→22:14)
[2018-12-11 01:40] LABS: TROPONIN-I 0.023 ng/ml (0.000-0.120)
[2018-12-11] MEDS: ACCU-CHEK XX (02:18)
[2018-12-11] MEDS: LEVOTHYROXINE 137 MCG TAB PO (05:19)
[2018-12-11] MEDS: PANTOPRAZOLE (EC) 40 MG TAB PO ×2 (05:19→17:07)
[2018-12-11] MEDS: POTASSIUM CHLORIDE 10 MEQ in SOD CHLORIDE 0.45% 1,000 ML IV (06:36)
[2018-12-11 07:23] LABS: ANION GAP 10 (5-13); BLOOD UREA NITROGEN 36 mg/dl (7-20); CALCIUM 9.2 mg/dl (8.4-10.2); CARBON DIOXIDE 20 mmol/L (21-31); CHLORIDE 108 mmol/L (97-110); GLUCOSE 173 mg/dl (70-220); POTASSIUM 4.4 mmol/L (3.5-5.1); SODIUM 138 mmol/L (135-144)
[2018-12-11 07:26] LABS: B-TYPE NATRIURETIC PEPTIDE 616 PG/ML (0-450)
[2018-12-11] MEDS: MAGNESIUM HYDROXIDE 30ML CUP PO (09:00)
[2018-12-11] MEDS: ASPIRIN 81 MG TAB PO (09:15)
[2018-12-11] MEDS: RIFAXIMIN 550 MG TAB PO (09:15)
[2018-12-11] MEDS: SENNA TAB PO (09:16)
[2018-12-11] MEDS: CLOPIDOGREL 75 MG TAB PO (09:16)
[2018-12-11] MEDS: METOPROLOL 25 MG TAB PO ×2 (09:17→21:00)
[2018-12-11] MEDS: CREON (24K-76K-120K) 1 CAP PO ×3 (09:18→17:07)
[2018-12-11] MEDS: BALSAM PERU/CASTOR OIL 60 GM TUBE TOP ×2 (11:01→22:07)
[2018-12-11] MEDS: DICLOFENAC SODIUM 1% GEL 100 GM TUBE TP ×3 (14:28→22:08)
[2018-12-11] MEDS: metFORMIN 500 MG TAB PO (17:07)
[2018-12-12] MEDS: ACCU-CHEK XX ×2 (02:00→17:50)
[2018-12-12] MEDS: POTASSIUM CHLORIDE 10 MEQ in SOD CHLORIDE 0.45% 1,000 ML IV (02:25)
[2018-12-12] MEDS: INSULIN ASPART [NOVOLOG] 3 ML PEN SC ×6 (03:31→20:51)
[2018-12-12] MEDS: LEVOTHYROXINE 137 MCG TAB PO (05:35)
[2018-12-12] MEDS: PANTOPRAZOLE (EC) 40 MG TAB PO ×2 (05:35→17:50)
[2018-12-12 06:48] LABS: ADD MAN DIFF? NO
[2018-12-12 06:51] LABS: WHITE BLOOD COUNT 3.8 10^3/ul (4.8-10.8)
[2018-12-12 06:51] LABS: ABNORMAL IP MESSAGE 1; BASOPHILS % 0.8 % (0.0-2.0); EOSINOPHILS # 0.2 10^3/ul (0.0-0.5); EOSINOPHILS % 5.8 % (0.0-7.0); HEMATOCRIT 32.4 % (42.0-52.0); HEMOGLOBIN 11.2 g/dl (14.0-18.0); LYMPHOCYTES # 0.7 10^3/ul (0.8-2.9); LYMPHOCYTES % 19.2 % (15.0-51.0); MEAN CORPUSCULAR HEMOGLOBIN 32.5 pg (29.0-33.0); MEAN CORPUSCULAR HGB CONC 34.6 g/dl (32.0-37.0); MEAN CORPUSCULAR VOLUME 93.9 fl (82.0-101.0); MEAN PLATELET VOLUME 10.1 fl (7.4-10.4); MONOCYTE # 0.4 10^3/ul (0.3-0.9); MONOCYTES % 10.8 % (0.0-11.0); NEUTROPHIL # 2.4 10^3/ul (1.6-7.5); NEUTROPHILS % 63.4 % (39.0-77.0); PLATELET COUNT 80 10^3/UL (140-415); POSITIVE DIFF @See below; RED BLOOD COUNT 3.45 10^6/ul (4.70-6.10); RED CELL DISTRIBUTION WIDTH 15.5 % (11.5-14.5)
[2018-12-12 07:12] LABS: ANION GAP 11 (5-13); BLOOD UREA NITROGEN 32 mg/dl (7-20); CALCIUM 8.9 mg/dl (8.4-10.2); CARBON DIOXIDE 21 mmol/L (21-31); CHLORIDE 108 mmol/L (97-110); CREATININE 1.31 mg/dl (0.61-1.24); GLUCOSE 141 mg/dl (70-220); POTASSIUM 4.1 mmol/L (3.5-5.1); SODIUM 140 mmol/L (135-144)
[2018-12-12] MEDS: BALSAM PERU/CASTOR OIL 60 GM TUBE TOP ×2 (09:00→21:55)
[2018-12-12] MEDS: METOPROLOL 25 MG TAB PO ×2 (09:00→20:38)
[2018-12-12] MEDS ORDERED: MEGESTROL 40 MG TAB PO (09:00)
[2018-12-12] MEDS ORDERED: MAGNESIUM HYDROXIDE 30ML CUP PO (09:30)
[2018-12-12] MEDS: MEGESTROL (40 MG/ML) 10ML CUP PO (09:37)
[2018-12-12] MEDS: CLOPIDOGREL 75 MG TAB PO (09:38)
[2018-12-12] MEDS: SENNA TAB PO (09:38)
[2018-12-12] MEDS: RIFAXIMIN 550 MG TAB PO (09:38)
[2018-12-12] MEDS: CREON (24K-76K-120K) 1 CAP PO ×3 (09:38→17:43)
[2018-12-12] MEDS: ASPIRIN 81 MG TAB PO (09:38)
[2018-12-12] MEDS: DICLOFENAC SODIUM 1% GEL 100 GM TUBE TP ×4 (10:12→20:41)
[2018-12-12] MEDS: CHOLECALCIFEROL 2,000 UNIT CAP PO (12:02)
[2018-12-12] MEDS: metFORMIN 500 MG TAB PO (17:43)
[2018-12-13] MEDS: LEVOTHYROXINE 137 MCG TAB PO (06:39)
[2018-12-13] MEDS: PANTOPRAZOLE (EC) 40 MG TAB PO ×2 (06:39→17:21)
[2018-12-13] MEDS: CREON (24K-76K-120K) 1 CAP PO ×3 (07:41→17:21)
[2018-12-13] MEDS: ACCU-CHEK XX ×2 (07:42→17:23)
[2018-12-13] MEDS: INSULIN ASPART [NOVOLOG] 3 ML PEN SC ×4 (07:51→21:54)
[2018-12-13 09:01] LABS: ANION GAP 15 (5-13); BLOOD UREA NITROGEN 28 mg/dl (7-20); CARBON DIOXIDE 21 mmol/L (21-31); CHLORIDE 105 mmol/L (97-110); CREATININE 1.29 mg/dl (0.61-1.24); GLUCOSE 190 mg/dl (70-220); MAGNESIUM 1.9 mg/dl (1.7-2.5); POTASSIUM 4.5 mmol/L (3.5-5.1); SODIUM 141 mmol/L (135-144)
[2018-12-13 09:09] LABS: B-TYPE NATRIURETIC PEPTIDE 619 PG/ML (0-450)
[2018-12-13] MEDS: MEGESTROL (40 MG/ML) 10ML CUP PO (09:46)
[2018-12-13] MEDS: RIFAXIMIN 550 MG TAB PO (09:47)
[2018-12-13] MEDS: ASPIRIN 81 MG TAB PO (09:47)
[2018-12-13] MEDS: SENNA TAB PO (09:47)
[2018-12-13] MEDS: CLOPIDOGREL 75 MG TAB PO (09:47)
[2018-12-13] MEDS: CHOLECALCIFEROL 2,000 UNIT CAP PO (09:48)
[2018-12-13] MEDS: DICLOFENAC SODIUM 1% GEL 100 GM TUBE TP ×4 (09:48→21:45)
[2018-12-13] MEDS: BALSAM PERU/CASTOR OIL 60 GM TUBE TOP ×2 (09:49→21:45)
[2018-12-13] MEDS: METOPROLOL 25 MG TAB PO ×2 (09:50→21:00)
[2018-12-13] MEDS: metFORMIN 500 MG TAB PO (17:23)
[2018-12-14] MEDS: CIPROFLOXACIN 200 MG/D5W IVPB 100 ML IVPB (00:37)
[2018-12-14] MEDS: LEVOTHYROXINE 137 MCG TAB PO (06:17)
[2018-12-14] MEDS: PANTOPRAZOLE (EC) 40 MG TAB PO ×2 (06:17→17:19)
[2018-12-14 06:41] LABS: ADD MAN DIFF? NO
[2018-12-14 06:50] LABS: ABNORMAL IP MESSAGE 1; BASOPHILS % 0.2 % (0.0-2.0); EOSINOPHILS # 0.1 10^3/ul (0.0-0.5); EOSINOPHILS % 1.1 % (0.0-7.0); HEMATOCRIT 35.5 % (42.0-52.0); HEMOGLOBIN 12.3 g/dl (14.0-18.0); LYMPHOCYTES # 0.3 10^3/ul (0.8-2.9); LYMPHOCYTES % 7.3 % (15.0-51.0); MEAN CORPUSCULAR HEMOGLOBIN 32.5 pg (29.0-33.0); MEAN CORPUSCULAR HGB CONC 34.6 g/dl (32.0-37.0); MEAN CORPUSCULAR VOLUME 93.7 fl (82.0-101.0); MEAN PLATELET VOLUME 10.5 fl (7.4-10.4); MONOCYTE # 0.3 10^3/ul (0.3-0.9); MONOCYTES % 7.7 % (0.0-11.0); NEUTROPHIL # 3.7 10^3/ul (1.6-7.5); NEUTROPHILS % 83.5 % (39.0-77.0); PLATELET COUNT 71 10^3/UL (140-415); POSITIVE DIFF @See below; RED BLOOD COUNT 3.79 10^6/ul (4.70-6.10)
[2018-12-14 06:50] LABS: WHITE BLOOD COUNT 4.4 10^3/ul (4.8-10.8)
[2018-12-14 07:15] LABS: B-TYPE NATRIURETIC PEPTIDE 467 PG/ML (0-450)
[2018-12-14 07:16] LABS: ANION GAP 11 (5-13); BLOOD UREA NITROGEN 24 mg/dl (7-20); CALCIUM 9.6 mg/dl (8.4-10.2); CARBON DIOXIDE 23 mmol/L (21-31); CHLORIDE 107 mmol/L (97-110); CREATININE 1.27 mg/dl (0.61-1.24); GLUCOSE 163 mg/dl (70-220); POTASSIUM 4.7 mmol/L (3.5-5.1); SODIUM 141 mmol/L (135-144)
[2018-12-14 07:22] LABS: AMMONIA 80 umol/l (9-30)
[2018-12-14] MEDS: ACCU-CHEK XX ×2 (07:47→17:19)
[2018-12-14] MEDS: CREON (24K-76K-120K) 1 CAP PO ×3 (07:47→17:20)
[2018-12-14] MEDS: INSULIN ASPART [NOVOLOG] 3 ML PEN SC ×4 (07:56→21:14)
[2018-12-14] MEDS ORDERED: POTASSIUM CHLORIDE 20 MEQ in SOD CHLORIDE 0.45% 1,000 ML IV (08:30)
[2018-12-14] MEDS ORDERED: SOD CHLORIDE 0.45% IV (08:30)
[2018-12-14] MEDS ORDERED: POTASSIUM CHLORIDE IV (08:30)
[2018-12-14 09:00] LABS: ADD UMIC YES; UR ASCORBIC ACID NEGATIVE (NEGATIVE); UR BACTERIA MANY /HPF (NONE SEEN); UR BILIRUBIN (Dip) NEGATIVE (NEGATIVE); UR BLOOD (Dip) NEGATIVE (NEGATIVE); UR CLARITY SLIGHTLY CLOUDY (CLEAR); UR COLOR AMBER (YELLOW); UR GLUCOSE (Dip) NEGATIVE (NEGATIVE); UR KETONES (Dip) NEGATIVE (NEGATIVE); UR LEUKOCYTE ESTERASE (Dip) 2+ Leu/ul (NEGATIVE); UR MUCUS MODERATE /HPF (NONE SEEN); UR NITRITE (Dip) NEGATIVE (NEGATIVE); UR RBC 4 /HPF (0-5); UR SPECIFIC GRAVITY (Dip) 1.018 (1.003-1.030); UR TOTAL PROTEIN (Dip) 1+ mg/dl (NEGATIVE); UR UROBILINOGEN (Dip) 2+ mg/dL (NEGATIVE); UR WBC > 182 /HPF (0-5)
[2018-12-14] MEDS: RIFAXIMIN 550 MG TAB PO (09:01)
[2018-12-14] MEDS: CLOPIDOGREL 75 MG TAB PO (09:01)
[2018-12-14] MEDS: SENNA TAB PO (09:01)
[2018-12-14] MEDS: CHOLECALCIFEROL 2,000 UNIT CAP PO (09:01)
[2018-12-14] MEDS: ASPIRIN 81 MG TAB PO (09:01)
[2018-12-14] MEDS: MEGESTROL (40 MG/ML) 10ML CUP PO (09:03)
[2018-12-14] MEDS: METOPROLOL 25 MG TAB PO ×2 (09:03→20:55)
[2018-12-14] MEDS: DICLOFENAC SODIUM 1% GEL 100 GM TUBE TP ×4 (09:15→21:03)
[2018-12-14] MEDS: BALSAM PERU/CASTOR OIL 60 GM TUBE TOP ×2 (09:15→22:00)
[2018-12-14 09:31] LABS: FOLATE 16.6 ng/ml (2.8-20.0)
[2018-12-14] MEDS: CIPROFLOXACIN 400MG/D5W 200 ML IVPB (09:56)
[2018-12-14] MEDS: POTASSIUM CHLORIDE 10 MEQ in SOD CHLORIDE 0.45% 1,000 ML IV (10:02)
[2018-12-14] MEDS: ARTIFICIAL TEARS 15 ML OPH BOTH EYES (15:12)
[2018-12-14] MEDS: metFORMIN 500 MG TAB PO (17:19)
[2018-12-15] MEDS: LEVOTHYROXINE 137 MCG TAB PO (06:20)
[2018-12-15] MEDS: PANTOPRAZOLE (EC) 40 MG TAB PO ×2 (06:20→17:20)
[2018-12-15] MEDS: ACCU-CHEK XX ×2 (07:55→17:19)
[2018-12-15] MEDS: CREON (24K-76K-120K) 1 CAP PO ×3 (07:55→17:19)
[2018-12-15] MEDS: INSULIN ASPART [NOVOLOG] 3 ML PEN SC ×4 (07:59→20:26)
[2018-12-15] MEDS ORDERED: INSULIN GLARGINE [LANTus] (100 UNITS/ML) SYG SC (08:00)
[2018-12-15 08:09] LABS: AADO2 Arterial 24.3 mmHg (7.0-24.0); Allen Test ACCEPTAB; Arterial Blood Gas Oxygen Sat 98.2 mmHG (95.0-100.0); Arterial COHb 0.4 % (0.0-3.0); Arterial Fraction of Oxyhgb 97.7 % (93.0-99.0); Arterial HCO3 18.1 mmol/L (22.0-26.0); Arterial MetHb 0.1 % (0.0-1.5); Arterial pCO2 25.6 mmhg (35-45); MODE NASAL CANNULA; Site Right Radial
[2018-12-15] MEDS: ASPIRIN 81 MG TAB PO (08:14)
[2018-12-15] MEDS: METOPROLOL 25 MG TAB PO ×2 (08:14→20:14)
[2018-12-15] MEDS: CLOPIDOGREL 75 MG TAB PO (08:15)
[2018-12-15] MEDS: RIFAXIMIN 550 MG TAB PO (08:15)
[2018-12-15] MEDS: SENNA TAB PO (08:15)
[2018-12-15] MEDS: MEGESTROL (40 MG/ML) 10ML CUP PO (08:15)
[2018-12-15] MEDS: CHOLECALCIFEROL 2,000 UNIT CAP PO (08:15)
[2018-12-15] MEDS: DICLOFENAC SODIUM 1% GEL 100 GM TUBE TP ×4 (09:21→20:14)
[2018-12-15] MEDS: CIPROFLOXACIN 400MG/D5W 200 ML IVPB (09:21)
[2018-12-15] MEDS: BALSAM PERU/CASTOR OIL 60 GM TUBE TOP ×2 (09:22→20:14)
[2018-12-15 09:30] LABS: ANION GAP 11 (5-13); BLOOD UREA NITROGEN 26 mg/dl (7-20); CALCIUM 9.1 mg/dl (8.4-10.2); CARBON DIOXIDE 20 mmol/L (21-31); CHLORIDE 107 mmol/L (97-110); CREATININE 1.52 mg/dl (0.61-1.24); GLUCOSE 213 mg/dl (70-220); POTASSIUM 4.6 mmol/L (3.5-5.1); SODIUM 138 mmol/L (135-144)
[2018-12-15] MEDS: ONDANSETRON 4 MG INJ IV (12:18)
[2018-12-15] MEDS ORDERED: METOPROLOL 5 MG INJ IV (13:00)
[2018-12-15] MEDS: MAGNESIUM SULFATE 1 GM/D5W 100 ML IVPB (15:16)
[2018-12-15] MEDS: metFORMIN 500 MG TAB PO (17:19)
[2018-12-16 03:19] LABS: ADD UMIC YES; UR ASCORBIC ACID NEGATIVE (NEGATIVE); UR BACTERIA FEW /HPF (NONE SEEN); UR BILIRUBIN (Dip) NEGATIVE (NEGATIVE); UR BLOOD (Dip) 2+ mg/dL (NEGATIVE); UR CLARITY SLIGHTLY CLOUDY (CLEAR); UR COLOR AMBER (YELLOW); UR GLUCOSE (Dip) NEGATIVE (NEGATIVE); UR KETONES (Dip) TRACE mg/dL (NEGATIVE); UR LEUKOCYTE ESTERASE (Dip) 1+ Leu/ul (NEGATIVE); UR MUCUS FEW /HPF (NONE SEEN); UR NITRITE (Dip) NEGATIVE (NEGATIVE); UR RBC 3 /HPF (0-5); UR SPECIFIC GRAVITY (Dip) 1.019 (1.003-1.030); UR TOTAL PROTEIN (Dip) 1+ mg/dl (NEGATIVE); UR UROBILINOGEN (Dip) 2+ mg/dL (NEGATIVE); UR WBC 81 /HPF (0-5)
[2018-12-16] MEDS: LEVOTHYROXINE 137 MCG TAB PO (06:00)
[2018-12-16] MEDS: PANTOPRAZOLE (EC) 40 MG TAB PO ×2 (06:00→18:00)
[2018-12-16 06:11] LABS: ADD MAN DIFF? NO
[2018-12-16 06:20] LABS: WHITE BLOOD COUNT 6.7 10^3/ul (4.8-10.8)
[2018-12-16 06:20] LABS: ABNORMAL IP MESSAGE 1; BASOPHILS % 0.3 % (0.0-2.0); EOSINOPHILS % 0.6 % (0.0-7.0); HEMATOCRIT 36.9 % (42.0-52.0); HEMOGLOBIN 12.5 g/dl (14.0-18.0); LYMPHOCYTES # 0.3 10^3/ul (0.8-2.9); LYMPHOCYTES % 4.8 % (15.0-51.0); MEAN CORPUSCULAR HEMOGLOBIN 32.4 pg (29.0-33.0); MEAN CORPUSCULAR HGB CONC 33.9 g/dl (32.0-37.0); MEAN CORPUSCULAR VOLUME 95.6 fl (82.0-101.0); MEAN PLATELET VOLUME 11.1 fl (7.4-10.4); MONOCYTE # 0.2 10^3/ul (0.3-0.9); MONOCYTES % 3.5 % (0.0-11.0); NEUTROPHILS % 90.5 % (39.0-77.0); PLATELET COUNT 95 10^3/UL (140-415); POSITIVE DIFF @See below; RED BLOOD COUNT 3.86 10^6/ul (4.70-6.10); RED CELL DISTRIBUTION WIDTH 17.1 % (11.5-14.5)
[2018-12-16 06:42] LABS: ANION GAP 11 (5-13); BLOOD UREA NITROGEN 27 mg/dl (7-20); CALCIUM 9.1 mg/dl (8.4-10.2); CARBON DIOXIDE 21 mmol/L (21-31); CHLORIDE 106 mmol/L (97-110); CREATININE 1.39 mg/dl (0.61-1.24); GLUCOSE 239 mg/dl (70-220); SODIUM 138 mmol/L (135-144)
[2018-12-16] MEDS: ACCU-CHEK XX ×2 (07:55→18:07)
[2018-12-16] MEDS: CREON (24K-76K-120K) 1 CAP PO ×3 (07:55→17:55)
[2018-12-16] MEDS: RIFAXIMIN 550 MG TAB PO (09:00)
[2018-12-16] MEDS: METOPROLOL 25 MG TAB PO ×2 (09:00→21:00)
[2018-12-16] MEDS: CHOLECALCIFEROL 2,000 UNIT CAP PO (09:00)
[2018-12-16] MEDS: SENNA TAB PO (09:00)
[2018-12-16] MEDS: ASPIRIN 81 MG TAB PO (09:00)
[2018-12-16] MEDS: MEGESTROL (40 MG/ML) 10ML CUP PO (09:00)
[2018-12-16] MEDS: CIPROFLOXACIN 400MG/D5W 200 ML IVPB (09:50)
[2018-12-16] MEDS: INSULIN ASPART [NOVOLOG] 3 ML PEN SC ×4 (10:13→21:18)
[2018-12-16] MEDS ORDERED: ENALAPRILAT 1.25 MG INJ IV (12:30)
[2018-12-16] MEDS: DICLOFENAC SODIUM 1% GEL 100 GM TUBE TP ×4 (12:55→21:04)
[2018-12-16] MEDS: DEXTROSE 5%-0.45% NACL 1,000 ML IV ×2 (12:55→21:03)
[2018-12-16] MEDS: BALSAM PERU/CASTOR OIL 60 GM TUBE TOP ×2 (12:56→21:04)
[2018-12-16] MEDS: metFORMIN 500 MG TAB PO (17:55)
[2018-12-17] MEDS: DEXTROSE 5%-0.45% NACL 1,000 ML IV ×3 (04:38→23:52)
[2018-12-17] MEDS: INSULIN ASPART [NOVOLOG] 3 ML PEN SC ×5 (04:48→22:03)
[2018-12-17] MEDS: PANTOPRAZOLE (EC) 40 MG TAB PO ×2 (06:00→17:36)
[2018-12-17] MEDS: LEVOTHYROXINE 137 MCG TAB PO (06:00)
[2018-12-17 06:11] LABS: ADD MAN DIFF? NO
[2018-12-17 06:25] LABS: WHITE BLOOD COUNT 5.9 10^3/ul (4.8-10.8)
[2018-12-17 06:25] LABS: ABNORMAL IP MESSAGE 1; BASOPHILS % 0.2 % (0.0-2.0); EOSINOPHILS # 0.1 10^3/ul (0.0-0.5); EOSINOPHILS % 1.7 % (0.0-7.0); HEMATOCRIT 31.4 % (42.0-52.0); HEMOGLOBIN 10.8 g/dl (14.0-18.0); LYMPHOCYTES # 0.4 10^3/ul (0.8-2.9); MEAN CORPUSCULAR HEMOGLOBIN 32.3 pg (29.0-33.0); MEAN CORPUSCULAR HGB CONC 34.4 g/dl (32.0-37.0); MEAN PLATELET VOLUME 11.2 fl (7.4-10.4); MONOCYTE # 0.6 10^3/ul (0.3-0.9); MONOCYTES % 9.3 % (0.0-11.0); NEUTROPHIL # 4.8 10^3/ul (1.6-7.5); NEUTROPHILS % 81.5 % (39.0-77.0); PLATELET COUNT 79 10^3/UL (140-415); POSITIVE DIFF @See below; RED BLOOD COUNT 3.34 10^6/ul (4.70-6.10); RED CELL DISTRIBUTION WIDTH 17.1 % (11.5-14.5)
[2018-12-17 07:01] LABS: ALANINE AMINOTRANSFERASE 53 IU/L (13-69); ALBUMIN 2.9 g/dl (3.3-4.9); ALBUMIN/GLOBULIN RATIO 1.03; ALKALINE PHOSPHATASE 126 IU/L (42-121); ANION GAP 9 (5-13); ASPARTATE AMINO TRANSFERASE 37 IU/L (15-46); BILIRUBIN,INDIRECT 1.6 mg/dl (0-1.1); BILIRUBIN,TOTAL 1.6 mg/dl (0.2-1.3); BLOOD UREA NITROGEN 27 mg/dl (7-20); CALCIUM 8.4 mg/dl (8.4-10.2); CARBON DIOXIDE 19 mmol/L (21-31); CHLORIDE 108 mmol/L (97-110); CREATININE 1.25 mg/dl (0.61-1.24); GLUCOSE 320 mg/dl (70-220); SODIUM 136 mmol/L (135-144); TOTAL PROTEIN 5.7 g/dl (6.1-8.1)
[2018-12-17] MEDS: CREON (24K-76K-120K) 1 CAP PO ×3 (07:55→17:36)
[2018-12-17] MEDS: ASPIRIN 81 MG TAB PO (08:31)
[2018-12-17] MEDS: CHOLECALCIFEROL 2,000 UNIT CAP PO (08:32)
[2018-12-17] MEDS: METOPROLOL 25 MG TAB PO ×2 (08:32→20:58)
[2018-12-17] MEDS: MEGESTROL (40 MG/ML) 10ML CUP PO (08:32)
[2018-12-17] MEDS: SENNA TAB PO (08:32)
[2018-12-17] MEDS: RIFAXIMIN 550 MG TAB PO (08:32)
[2018-12-17] MEDS: BALSAM PERU/CASTOR OIL 60 GM TUBE TOP ×2 (08:33→20:58)
[2018-12-17] MEDS: DICLOFENAC SODIUM 1% GEL 100 GM TUBE TP ×4 (08:33→20:58)
[2018-12-17] MEDS: CIPROFLOXACIN 400MG/D5W 200 ML IVPB (08:48)
[2018-12-17 08:57] LABS: ANISOCYTOSIS 1+ (0-0); BAND NEUTROPHILS #M 1.2 10^3/ul (0.0-0.6); BAND NEUTROPHILS % (M) 22 % (0-4); GIANT THROMBO% (M) 3 % (0-0); LYMPHOCYTES #M 0.5 10^3/ul (0.8-2.9); LYMPHOCYTES % (M) 10 % (15-51); METAMYELOCYTES %M 1 % (0-0); MICROCYTOSIS 1+ (0-0); MONOCYTE #M 0.2 10^3/ul (0.3-0.9); MONOCYTES % (M) 4 % (0-11); PLATELET ESTIMATE DECREASED; POIKILOCYTOSIS 3+ (0-0); SEG NEUT #M 3.8 10^3/ul (1.6-7.5); SEGMENTED NEUTROPHILS (M) % 63 % (39-77); SMUDGE%M 4 % (0-0)
[2018-12-17] MEDS: metFORMIN 500 MG TAB PO (17:36)
[2018-12-17] MEDS: ACCU-CHEK XX (17:37)
[2018-12-18] MEDS: ACCU-CHEK XX ×4 (00:38→18:00)
[2018-12-18] MEDS: INSULIN ASPART [NOVOLOG] 3 ML PEN SC ×6 (00:47→21:51)
[2018-12-18 02:21] LABS: VITAMIN B1 (THIAMINE) 122 nmol/L (78-185)
[2018-12-18] MEDS: LEVOTHYROXINE 137 MCG TAB PO (06:00)
[2018-12-18] MEDS: PANTOPRAZOLE (EC) 40 MG TAB PO ×2 (06:00→18:00)
[2018-12-18 06:11] LABS: ADD MAN DIFF? NO
[2018-12-18 06:25] LABS: ABNORMAL IP MESSAGE 1; BASOPHILS % 0.5 % (0.0-2.0); EOSINOPHILS # 0.2 10^3/ul (0.0-0.5); EOSINOPHILS % 3.7 % (0.0-7.0); HEMOGLOBIN 12.4 g/dl (14.0-18.0); LYMPHOCYTES # 0.5 10^3/ul (0.8-2.9); LYMPHOCYTES % 7.6 % (15.0-51.0); MEAN CORPUSCULAR HEMOGLOBIN 32.5 pg (29.0-33.0); MEAN CORPUSCULAR HGB CONC 34.4 g/dl (32.0-37.0); MEAN CORPUSCULAR VOLUME 94.5 fl (82.0-101.0); MEAN PLATELET VOLUME 10.4 fl (7.4-10.4); MONOCYTE # 0.5 10^3/ul (0.3-0.9); MONOCYTES % 8.5 % (0.0-11.0); NEUTROPHIL # 4.9 10^3/ul (1.6-7.5); NEUTROPHILS % 79.4 % (39.0-77.0); PLATELET COUNT 103 10^3/UL (140-415); POSITIVE DIFF @See below; RED BLOOD COUNT 3.81 10^6/ul (4.70-6.10); RED CELL DISTRIBUTION WIDTH 16.3 % (11.5-14.5)
[2018-12-18 06:25] LABS: WHITE BLOOD COUNT 6.2 10^3/ul (4.8-10.8)
[2018-12-18 06:46] LABS: ANION GAP 10 (5-13); BLOOD UREA NITROGEN 18 mg/dl (7-20); CALCIUM 8.8 mg/dl (8.4-10.2); CARBON DIOXIDE 20 mmol/L (21-31); CHLORIDE 108 mmol/L (97-110); CREATININE 1.08 mg/dl (0.61-1.24); GLUCOSE 309 mg/dl (70-220); POTASSIUM 4.1 mmol/L (3.5-5.1); SODIUM 138 mmol/L (135-144)
[2018-12-18] MEDS: CREON (24K-76K-120K) 1 CAP PO ×3 (07:55→17:55)
[2018-12-18] MEDS: MEGESTROL (40 MG/ML) 10ML CUP PO (09:00)
[2018-12-18] MEDS: SENNA TAB PO (09:00)
[2018-12-18] MEDS: CHOLECALCIFEROL 2,000 UNIT CAP PO (09:00)
[2018-12-18] MEDS: METOPROLOL 25 MG TAB PO ×2 (09:00→21:31)
[2018-12-18] MEDS: RIFAXIMIN 550 MG TAB PO (09:00)
[2018-12-18] MEDS: CIPROFLOXACIN 400MG/D5W 200 ML IVPB (09:08)
[2018-12-18] MEDS: ARTIFICIAL TEARS 15 ML OPH BOTH EYES (09:09)
[2018-12-18] MEDS: ASPIRIN 81 MG TAB PO (10:25)
[2018-12-18] MEDS: DICLOFENAC SODIUM 1% GEL 100 GM TUBE TP ×4 (13:22→21:34)
[2018-12-18] MEDS: BALSAM PERU/CASTOR OIL 60 GM TUBE TOP ×2 (13:22→21:34)
[2018-12-18] MEDS: DEXTROSE 5%-0.45% NACL 1,000 ML IV (13:24)
[2018-12-18 15:40] LABS: AMMONIA 27 umol/l (9-30)
[2018-12-18 15:48] LABS: B-TYPE NATRIURETIC PEPTIDE 4070 PG/ML (0-450)
[2018-12-18] MEDS: metFORMIN 500 MG TAB PO (17:55)
[2018-12-19] MEDS: DEXTROSE 5%-0.45% NACL 1,000 ML IV ×2 (01:12→20:00)
[2018-12-19] MEDS: INSULIN ASPART [NOVOLOG] 3 ML PEN SC ×5 (02:01→18:09)
[2018-12-19] MEDS: ACCU-CHEK XX ×4 (02:02→18:01)
[2018-12-19 06:32] LABS: ANION GAP 9 (5-13); BLOOD UREA NITROGEN 17 mg/dl (7-20); CALCIUM 8.7 mg/dl (8.4-10.2); CARBON DIOXIDE 23 mmol/L (21-31); CHLORIDE 104 mmol/L (97-110); CREATININE 1.11 mg/dl (0.61-1.24); GLUCOSE 261 mg/dl (70-220); POTASSIUM 4.1 mmol/L (3.5-5.1); SODIUM 136 mmol/L (135-144)
[2018-12-19] MEDS: LEVOTHYROXINE 137 MCG TAB PO (06:35)
[2018-12-19] MEDS: BALSAM PERU/CASTOR OIL 60 GM TUBE TOP ×2 (09:00→21:45)
[2018-12-19] MEDS: DICLOFENAC SODIUM 1% GEL 100 GM TUBE TP ×4 (09:32→21:45)
[2018-12-19] MEDS: METOPROLOL 25 MG TAB PO ×2 (09:33→21:00)
[2018-12-19] MEDS: RIFAXIMIN 550 MG TAB PO (09:33)
[2018-12-19] MEDS: CHOLECALCIFEROL 2,000 UNIT CAP PO (09:33)
[2018-12-19] MEDS: MEGESTROL (40 MG/ML) 10ML CUP PO (09:33)
[2018-12-19] MEDS: ASPIRIN 81 MG TAB PO (09:34)
[2018-12-19] MEDS: LANSOPRAZOLE 15 MG CAP NGT ×2 (09:34→17:59)
[2018-12-19] MEDS: SENNA TAB PO (09:34)
[2018-12-19] MEDS: CREON (24K-76K-120K) 1 CAP PO ×3 (09:34→17:59)
[2018-12-19] MEDS: CIPROFLOXACIN 400MG/D5W 200 ML IVPB (10:30)
[2018-12-19] MEDS: SOD CHLORIDE 0.45% 1,000 ML IV (13:42)
[2018-12-19] MEDS: NYSTATIN 30 GM POWDER BTL TOP ×2 (16:54→21:45)
[2018-12-19] MEDS: metFORMIN 500 MG TAB PO (17:59)
[2018-12-20] MEDS: INSULIN ASPART [NOVOLOG] 3 ML PEN SC ×6 (00:06→21:22)
[2018-12-20] MEDS: DEXTROSE 5%-0.45% NACL 1,000 ML IV (00:10)
[2018-12-20] MEDS: LEVOTHYROXINE 137 MCG TAB PO (06:00)
[2018-12-20] MEDS: LANSOPRAZOLE 15 MG CAP NGT ×2 (06:00→17:36)
[2018-12-20] MEDS: CREON (24K-76K-120K) 1 CAP PO ×3 (07:55→17:35)
[2018-12-20] MEDS: CHOLECALCIFEROL 2,000 UNIT CAP PO (08:09)
[2018-12-20] MEDS: METOPROLOL 25 MG TAB PO ×2 (08:09→21:20)
[2018-12-20] MEDS: RIFAXIMIN 550 MG TAB PO (08:09)
[2018-12-20] MEDS: SENNA TAB PO (08:09)
[2018-12-20] MEDS: ASPIRIN 81 MG TAB PO (08:09)
[2018-12-20] MEDS: MEGESTROL (40 MG/ML) 10ML CUP PO (08:09)
[2018-12-20] MEDS: DICLOFENAC SODIUM 1% GEL 100 GM TUBE TP ×4 (09:00→21:20)
[2018-12-20] MEDS: BALSAM PERU/CASTOR OIL 60 GM TUBE TOP ×2 (09:01→21:20)
[2018-12-20] MEDS: NYSTATIN 30 GM POWDER BTL TOP ×2 (09:01→21:20)
[2018-12-20] MEDS: SOD CHLORIDE 0.45% 1,000 ML IV (12:38)
[2018-12-20] MEDS: MIDAZOLAM 1 MG/ML 2 ML INJ (13:40)
[2018-12-20] MEDS ORDERED: LIDOCAINE 2% (SDV) 5 ML INJ (13:48)
[2018-12-20] MEDS: CEFAZOLIN 2 GM/50 ML (PMX) 50 ML IVPB (13:50)
[2018-12-20] MEDS ORDERED: SOD CHLORIDE 0.45% 1,000 ML IV (17:30)
[2018-12-20] MEDS: metFORMIN 500 MG TAB PO (17:35)
[2018-12-20] MEDS: POTASSIUM CHLORIDE 10 MEQ in SOD CHLORIDE 0.45% 1,000 ML IV (22:00)
[2018-12-21] MEDS: INSULIN ASPART [NOVOLOG] 3 ML PEN SC ×5 (01:47→23:57)
[2018-12-21] MEDS: LANSOPRAZOLE 15 MG CAP NGT ×2 (06:27→17:17)
[2018-12-21] MEDS: LEVOTHYROXINE 137 MCG TAB PO (06:27)
[2018-12-21] MEDS: ASPIRIN 81 MG TAB PO (08:58)
[2018-12-21] MEDS: CHOLECALCIFEROL 2,000 UNIT CAP PO (08:58)
[2018-12-21] MEDS: RIFAXIMIN 550 MG TAB PO (08:58)
[2018-12-21] MEDS: CREON (24K-76K-120K) 1 CAP PO ×3 (08:58→17:17)
[2018-12-21] MEDS: MEGESTROL (40 MG/ML) 10ML CUP PO (08:58)
[2018-12-21] MEDS: METOPROLOL 25 MG TAB PO (08:59)
[2018-12-21] MEDS: SENNA TAB PO (09:51)
[2018-12-21] MEDS: NYSTATIN 30 GM POWDER BTL TOP ×2 (09:52→21:43)
[2018-12-21] MEDS: BALSAM PERU/CASTOR OIL 60 GM TUBE TOP ×2 (09:52→21:43)
[2018-12-21] MEDS: DICLOFENAC SODIUM 1% GEL 100 GM TUBE TP ×4 (09:52→21:43)
[2018-12-21] MEDS: POTASSIUM CHLORIDE 10 MEQ in SOD CHLORIDE 0.45% 1,000 ML IV (14:06)
[2018-12-21] MEDS: metFORMIN 500 MG TAB PO (17:18)
[2018-12-21 18:13] LABS: ADD MAN DIFF? NO
[2018-12-21 18:16] LABS: ABNORMAL IP MESSAGE 1; BASOPHILS % 0.5 % (0.0-2.0); EOSINOPHILS % 0.5 % (0.0-7.0); HEMATOCRIT 31.9 % (42.0-52.0); HEMOGLOBIN 11.1 g/dl (14.0-18.0); LYMPHOCYTES # 0.4 10^3/ul (0.8-2.9); LYMPHOCYTES % 5.3 % (15.0-51.0); MEAN CORPUSCULAR HEMOGLOBIN 32.7 pg (29.0-33.0); MEAN CORPUSCULAR HGB CONC 34.8 g/dl (32.0-37.0); MEAN CORPUSCULAR VOLUME 94.1 fl (82.0-101.0); MONOCYTE # 0.6 10^3/ul (0.3-0.9); MONOCYTES % 7.3 % (0.0-11.0); NEUTROPHIL # 6.6 10^3/ul (1.6-7.5); NEUTROPHILS % 85.9 % (39.0-77.0); PLATELET COUNT 86 10^3/UL (140-415); POSITIVE DIFF @See below; RED BLOOD COUNT 3.39 10^6/ul (4.70-6.10); RED CELL DISTRIBUTION WIDTH 16.5 % (11.5-14.5)
[2018-12-21 18:16] LABS: WHITE BLOOD COUNT 7.7 10^3/ul (4.8-10.8)
[2018-12-21 18:37] LABS: AMMONIA 34 umol/l (9-30)
[2018-12-21 18:37] LABS: ALBUMIN 2.8 g/dl (3.3-4.9); ANION GAP 7 (5-13); BLOOD UREA NITROGEN 28 mg/dl (7-20); CALCIUM 8.4 mg/dl (8.4-10.2); CARBON DIOXIDE 23 mmol/L (21-31); CHLORIDE 103 mmol/L (97-110); CREATININE 1.19 mg/dl (0.61-1.24); GLUCOSE 207 mg/dl (70-220); POTASSIUM 4.6 mmol/L (3.5-5.1); SODIUM 133 mmol/L (135-144)
[2018-12-21 18:42] LABS: B-TYPE NATRIURETIC PEPTIDE 1220 PG/ML (0-450)
[2018-12-21 18:49] LABS: FREE T4 (FREE THYROXINE) 0.96 ng/dl (0.85-1.93)
[2018-12-21] MEDS: METOPROLOL 25 MG TAB GTB (21:00)
[2018-12-21] MEDS: METOCLOPRAMIDE (1 MG/ML) 10 ML CUP GTB (21:42)
[2018-12-22] MEDS: METOCLOPRAMIDE (1 MG/ML) 10 ML CUP GTB ×3 (05:43→21:48)
[2018-12-22] MEDS: LEVOTHYROXINE 137 MCG TAB GTB (05:43)
[2018-12-22] MEDS: LANSOPRAZOLE 15 MG CAP GTB ×2 (05:43→17:50)
[2018-12-22] MEDS: INSULIN ASPART [NOVOLOG] 3 ML PEN SC ×3 (06:12→18:03)
[2018-12-22] MEDS: ASPIRIN 81 MG TAB GTB (08:17)
[2018-12-22] MEDS: RIFAXIMIN 550 MG TAB GTB (08:17)
[2018-12-22] MEDS: CHOLECALCIFEROL 2,000 UNIT CAP GTB (08:17)
[2018-12-22] MEDS: DICLOFENAC SODIUM 1% GEL 100 GM TUBE TP ×4 (08:18→22:16)
[2018-12-22] MEDS: CREON (24K-76K-120K) 1 CAP GTB ×3 (08:18→17:49)
[2018-12-22] MEDS: METOPROLOL 25 MG TAB GTB ×2 (08:18→20:55)
[2018-12-22] MEDS: SENNA TAB GTB (08:18)
[2018-12-22] MEDS: NYSTATIN 30 GM POWDER BTL TOP ×2 (08:18→22:16)
[2018-12-22] MEDS: BALSAM PERU/CASTOR OIL 60 GM TUBE TOP ×2 (08:19→22:16)
[2018-12-22 08:21] LABS: ADD MAN DIFF? NO
[2018-12-22 08:35] LABS: WHITE BLOOD COUNT 4.8 10^3/ul (4.8-10.8)
[2018-12-22 08:35] LABS: ABNORMAL IP MESSAGE 1; BASOPHILS % 0.4 % (0.0-2.0); EOSINOPHILS # 0.1 10^3/ul (0.0-0.5); EOSINOPHILS % 2.9 % (0.0-7.0); HEMATOCRIT 30.8 % (42.0-52.0); HEMOGLOBIN 10.9 g/dl (14.0-18.0); LYMPHOCYTES # 0.5 10^3/ul (0.8-2.9); LYMPHOCYTES % 9.4 % (15.0-51.0); MEAN CORPUSCULAR HEMOGLOBIN 32.2 pg (29.0-33.0); MEAN CORPUSCULAR HGB CONC 35.4 g/dl (32.0-37.0); MEAN CORPUSCULAR VOLUME 90.9 fl (82.0-101.0); MEAN PLATELET VOLUME 10.7 fl (7.4-10.4); MONOCYTE # 0.5 10^3/ul (0.3-0.9); MONOCYTES % 11.3 % (0.0-11.0); NEUTROPHIL # 3.6 10^3/ul (1.6-7.5); NEUTROPHILS % 75.6 % (39.0-77.0); PLATELET COUNT 107 10^3/UL (140-415); POSITIVE DIFF @See below; RED BLOOD COUNT 3.39 10^6/ul (4.70-6.10); RED CELL DISTRIBUTION WIDTH 16.5 % (11.5-14.5)
[2018-12-22 08:44] LABS: ANION GAP 8 (5-13); BLOOD UREA NITROGEN 33 mg/dl (7-20); CALCIUM 8.4 mg/dl (8.4-10.2); CARBON DIOXIDE 22 mmol/L (21-31); CHLORIDE 105 mmol/L (97-110); CREATININE 1.12 mg/dl (0.61-1.24); GLUCOSE 187 mg/dl (70-220); POTASSIUM 4.2 mmol/L (3.5-5.1); SODIUM 135 mmol/L (135-144)
[2018-12-22 08:53] LABS: B-TYPE NATRIURETIC PEPTIDE 1010 PG/ML (0-450)
[2018-12-22] MEDS: metFORMIN 500 MG TAB GTB (17:49)
[2018-12-22 22:16] LABS: ADD UMIC YES; UR ASCORBIC ACID 20 mg/dL (NEGATIVE); UR BILIRUBIN (Dip) NEGATIVE (NEGATIVE); UR BLOOD (Dip) NEGATIVE (NEGATIVE); UR CLARITY CLEAR (CLEAR); UR COLOR AMBER (YELLOW); UR GLUCOSE (Dip) NEGATIVE (NEGATIVE); UR KETONES (Dip) NEGATIVE (NEGATIVE); UR LEUKOCYTE ESTERASE (Dip) TRACE Leu/ul (NEGATIVE); UR NITRITE (Dip) NEGATIVE (NEGATIVE); UR RBC 2 /HPF (0-5); UR SPECIFIC GRAVITY (Dip) 1.015 (1.003-1.030); UR TOTAL PROTEIN (Dip) NEGATIVE (NEGATIVE); UR UROBILINOGEN (Dip) 2+ mg/dL (NEGATIVE); UR WBC 7 /HPF (0-5)
[2018-12-23] MEDS: INSULIN ASPART [NOVOLOG] 3 ML PEN SC ×4 (00:47→17:40)
[2018-12-23] MEDS: LANSOPRAZOLE 15 MG CAP GTB ×2 (05:58→17:32)
[2018-12-23] MEDS: LEVOTHYROXINE 137 MCG TAB GTB (05:58)
[2018-12-23] MEDS: METOCLOPRAMIDE (1 MG/ML) 10 ML CUP GTB ×3 (05:58→22:11)
[2018-12-23] MEDS: METOPROLOL 25 MG TAB GTB ×3 (08:38→22:13)
[2018-12-23] MEDS: CHOLECALCIFEROL 2,000 UNIT CAP GTB (08:40)
[2018-12-23] MEDS: CREON (24K-76K-120K) 1 CAP GTB ×3 (08:40→17:32)
[2018-12-23] MEDS: NYSTATIN 30 GM POWDER BTL TOP ×2 (08:40→22:10)
[2018-12-23] MEDS: RIFAXIMIN 550 MG TAB GTB (08:40)
[2018-12-23] MEDS: SENNA TAB GTB (08:40)
[2018-12-23] MEDS: ASPIRIN 81 MG TAB GTB (08:40)
[2018-12-23] MEDS: BALSAM PERU/CASTOR OIL 60 GM TUBE TOP ×2 (08:40→22:10)
[2018-12-23] MEDS: DICLOFENAC SODIUM 1% GEL 100 GM TUBE TP ×4 (11:13→22:11)
[2018-12-23 14:22] LABS: ANION GAP 10 (5-13); BLOOD UREA NITROGEN 31 mg/dl (7-20); CARBON DIOXIDE 25 mmol/L (21-31); CHLORIDE 101 mmol/L (97-110); GLUCOSE 245 mg/dl (70-220); POTASSIUM 4.6 mmol/L (3.5-5.1); SODIUM 136 mmol/L (135-144)
[2018-12-23] MEDS: ONDANSETRON 4 MG TAB GTB (17:29)
[2018-12-23] MEDS: metFORMIN 500 MG TAB GTB (17:32)
[2018-12-23] MEDS: D5-NS + KCL 20 MEQ 1,000 ML IV (21:02)
[2018-12-23 22:56] LABS: LIPASE 33 U/L (23-300)
[2018-12-23 22:57] LABS: AMYLASE < 30 U/L (11-123)
[2018-12-23 22:57] LABS: AMMONIA 213 umol/l (9-30)
[2018-12-23 23:09] LABS: TROPONIN-I < 0.012 ng/ml (0.000-0.120)
[2018-12-23] MEDS ORDERED: LACTULOSE 30ML CUP GTB (23:30)
[2018-12-23] MEDS: SOD CHLORIDE 0.9% 500 ML IV (23:44)
[2018-12-23] MEDS: LACTULOSE 30ML CUP GTB (23:56)
[2018-12-24] MEDS ORDERED: LACTULOSE 30ML CUP GTB
[2018-12-24] MEDS: INSULIN ASPART [NOVOLOG] 3 ML PEN SC ×4 (00:16→18:30)
[2018-12-24] MEDS: LANSOPRAZOLE 15 MG CAP GTB ×2 (05:28→18:15)
[2018-12-24] MEDS: LEVOTHYROXINE 137 MCG TAB GTB (05:28)
[2018-12-24 06:33] LABS: WHITE BLOOD COUNT 8.2 10^3/ul (4.8-10.8)
[2018-12-24 06:33] LABS: ABNORMAL IP MESSAGE 1; HEMATOCRIT 36.1 % (42.0-52.0); HEMOGLOBIN 12.8 g/dl (14.0-18.0); MEAN CORPUSCULAR HEMOGLOBIN 31.9 pg (29.0-33.0); MEAN CORPUSCULAR HGB CONC 35.5 g/dl (32.0-37.0); MEAN PLATELET VOLUME 9.8 fl (7.4-10.4); PLATELET COUNT 170 10^3/UL (140-415); POSITIVE DIFF @See below; RED BLOOD COUNT 4.01 10^6/ul (4.70-6.10); RED CELL DISTRIBUTION WIDTH 16.6 % (11.5-14.5)
[2018-12-24 06:37] LABS: ADD MAN DIFF? YES
[2018-12-24 06:42] LABS: AMMONIA 167 umol/l (9-30)
[2018-12-24 07:06] LABS: TROPONIN-I 0.013 ng/ml (0.000-0.120)
[2018-12-24 07:21] LABS: ALANINE AMINOTRANSFERASE 42 IU/L (13-69); ALBUMIN 3.1 g/dl (3.3-4.9); ALKALINE PHOSPHATASE 202 IU/L (42-121); ANION GAP 15 (5-13); ASPARTATE AMINO TRANSFERASE 59 IU/L (15-46); BILIRUBIN,INDIRECT 2.7 mg/dl (0-1.1); BILIRUBIN,TOTAL 2.9 mg/dl (0.2-1.3); BLOOD UREA NITROGEN 31 mg/dl (7-20); CARBON DIOXIDE 20 mmol/L (21-31); CHLORIDE 105 mmol/L (97-110); CREATININE 1.09 mg/dl (0.61-1.24); GLUCOSE 173 mg/dl (70-220); POTASSIUM 4.9 mmol/L (3.5-5.1); SODIUM 140 mmol/L (135-144); TOTAL PROTEIN 5.9 g/dl (6.1-8.1)
[2018-12-24 07:30] LABS: B-TYPE NATRIURETIC PEPTIDE 1520 PG/ML (0-450)
[2018-12-24 08:01] LABS: ERYTHROCYTE SEDIMENTATION RATE 39 mm/Hr (0-20)
[2018-12-24 08:08] LABS: ANISOCYTOSIS 2+ (0-0); BAND NEUTROPHILS #M 3.5 10^3/ul (0.0-0.6); BAND NEUTROPHILS % (M) 43 % (0-4); BURR CELLS 1+ (0-0); GIANT THROMBO% (M) 2 % (0-0); LYMPHOCYTES #M 0.1 10^3/ul (0.8-2.9); LYMPHOCYTES % (M) 2 % (15-51); MICROCYTOSIS 1+ (0-0); MONOCYTE #M 0.3 10^3/ul (0.3-0.9); MONOCYTES % (M) 4 % (0-11); OVALOCYTES 1+ (0-0); PLATELET ESTIMATE NORMAL; POIKILOCYTOSIS 1+ (0-0); POLYCHROMASIA 2+ (0-0); SEG NEUT #M 4.5 10^3/ul (1.6-7.5); SEGMENTED NEUTROPHILS (M) % 51 % (39-77); SMUDGE%M 1 % (0-0); TOXIC GRANULATION 1+ (0-0)
[2018-12-24] MEDS: ASPIRIN 81 MG TAB GTB (08:12)
[2018-12-24] MEDS: LACTULOSE 30ML CUP GTB ×2 (08:12→21:58)
[2018-12-24] MEDS: SENNA TAB GTB (08:12)
[2018-12-24] MEDS: METOPROLOL 25 MG TAB GTB ×2 (08:12→21:00)
[2018-12-24] MEDS: CREON (24K-76K-120K) 1 CAP GTB ×3 (08:12→17:55)
[2018-12-24] MEDS: RIFAXIMIN 550 MG TAB GTB (08:13)
[2018-12-24] MEDS: BALSAM PERU/CASTOR OIL 60 GM TUBE TOP ×2 (08:13→21:59)
[2018-12-24] MEDS: NYSTATIN 30 GM POWDER BTL TOP ×2 (08:13→21:59)
[2018-12-24] MEDS: DICLOFENAC SODIUM 1% GEL 100 GM TUBE TP ×4 (08:13→21:59)
[2018-12-24 08:35] LABS: HEMOGLOBIN A1C 5.9 % (0-5.9)
[2018-12-24 08:40] LABS: PREALBUMIN 7.4 mg/dl (17.6-36.0)
[2018-12-24] MEDS: METHYLPREDNISOLONE 125 MG INJ IV (10:08)
[2018-12-24] MEDS: FUROSEMIDE 40 MG INJ IV (10:10)
[2018-12-24] MEDS: LEVALBUTEROL (NEB) 1.25 MG/0.5 ML AMP HHN ×2 (10:23→13:29)
[2018-12-24 10:41] LABS: AADO2 Arterial 550.2 mmHg (7.0-24.0); Allen Test ACCEPTAB; Arterial Base Excess -7.3 mmol/L (-3.0-3); Arterial Blood Gas Oxygen Sat 97.5 mmHG (95.0-100.0); Arterial COHb 0.4 % (0.0-3.0); Arterial Fraction of Oxyhgb 96.9 % (93.0-99.0); Arterial HCO3 18.1 mmol/L (22.0-26.0); Arterial MetHb 0.2 % (0.0-1.5); Arterial pCO2 36.5 mmhg (35-45); MODE MASK - NRB; Site Left Radial
[2018-12-24 11:18] LABS: PROCALCITONIN 1.06 ng/mL (0.00-0.10)
[2018-12-24] MEDS ORDERED: LEVOFLOXACIN 750MG/D5W (PMX) 150 ML IVPB (12:30)
[2018-12-24] MEDS: LEVOFLOXACIN 500MG/D5W (PMX) 100 ML IVPB (12:49)
[2018-12-24] MEDS ORDERED: morphine 2 MG INJ IV (15:30)
[2018-12-24] MEDS: AMPICILLIN/SULB 3 GM/NS (PMX) 100 ML IVPB (18:19)
[2018-12-24] MEDS: MAGNESIUM HYDROXIDE 30ML CUP GTB (21:58)
[2018-12-25] MEDS: morphine 2 MG INJ IV (00:26)
[2018-12-25] MEDS ORDERED: LORAZEPAM 2 MG INJ IM (00:30)
[2018-12-25] MEDS: LORAZEPAM 2 MG INJ IV (00:32)
[2018-12-25] MEDS ORDERED: morphine 2 MG INJ IV (01:00)
[2018-12-25] MEDS ORDERED: LORAZEPAM 2 MG INJ IV (01:00)
== END 2018-12-25 01:25 | disposition expired | DRG 70 ==
LOC: TEL 10:30
PROC: 0DJ08ZZ Inspection of Upper Intestinal Tract, Via Natural or Artificial Opening Endoscopic (ICD-10-PCS; principal; 2018-12-20 12:50)
PROC: 0DH63UZ Insertion of Feeding Device into Stomach, Percutaneous Approach (ICD-10-PCS; 2018-12-20 12:50)
DX: G46.4 Cerebellar stroke syndrome (principal); I21.3 ST elevation (STEMI) myocardial infarction of unspecified site; J69.0 Pneumonitis due to inhalation of food and vomit; G93.40 Encephalopathy, unspecified; G45.9 Transient cerebral ischemic attack, unspecified; D61.818 Other pancytopenia; N39.0 Urinary tract infection, site not specified; I47.2 Ventricular tachycardia; G11.9 Hereditary ataxia, unspecified; R09.2 Respiratory arrest; E11.22 Type 2 diabetes mellitus with diabetic chronic kidney disease; D69.6 Thrombocytopenia, unspecified; R13.10 Dysphagia, unspecified; E11.40 Type 2 diabetes mellitus with diabetic neuropathy, unspecified; J44.9 Chronic obstructive pulmonary disease, unspecified; I73.9 Peripheral vascular disease, unspecified; R00.1 Bradycardia, unspecified; R63.0 Anorexia; D64.9 Anemia, unspecified; N18.2 Chronic kidney disease, stage 2 (mild); F32.9 Major depressive disorder, single episode, unspecified; E03.9 Hypothyroidism, unspecified; K21.9 Gastro-esophageal reflux disease without esophagitis; F41.9 Anxiety disorder, unspecified; I12.9 Hypertensive chronic kidney disease with stage 1 through stage 4 chronic kidney disease, or unspecified chronic kidney disease; Z68.20 Body mass index [BMI] 20.0-20.9, adult; Z79.4 Long term (current) use of insulin; Z87.891 Personal history of nicotine dependence; Z85.068 Personal history of other malignant neoplasm of small intestine; Z85.46 Personal history of malignant neoplasm of prostate; Z85.51 Personal history of malignant neoplasm of bladder
CPT/HCPCS: 36600; 70450; 70552; 71045; 74018; 80048; 80053; 81001; 81003; 82040; 82140; 82150; 82607; 82746; 82803; 82962; 83036; 83690; 83735; 83880; 84134; 84145; 84425; 84439; 84443; 84484; 85025; 85610; 85651; 87086; 92526; 92610; 93005; 94640; 94664; 95819; 97110; 97163; 97167; 97530; 97535